=== PATIENT | male | born 1955 | race Caucasian/White ===

== ENCOUNTER 2022-08-29 07:28 | Outpatient (CLI) | payer BC, SELFPAY ==
--- NOTE | ~2022-08-29 | CT_ITS ---
EXAMINATION: CT abdomen pelvis wo/w con DATE: 08/29/2022 08:16 INDICATION: Gross hematuria TECHNIQUE: Computed tomography (CT) of the abdomen and pelvis was performed without intravenous contr ast. CT of the abdomen and pelvis was then performed with a total of 130 mL Omnipaque 350 intravenous contrast using a double-bolus technique for simultaneous opacification of the renal parenchyma and r enal collecting system. The dose-length product (DLP) was 1880.11 mGy-cm. Automated exposure control and iterative reconstruction technique were employed. COMPARISON: None FINDINGS: Minimal dependent atelectasis is present in the lung bases. The heart size is normal. The l iver, spleen, pancreas, gallbladder, and adrenal glands are normal. No stones are present in the kidn eys or ureters. There is a 4 mm cyst of the left kidney. No suspicious renal lesion identified. There is a 3.7 cm stone in the urinary bladder. There is marked enlargement of the prostate. There is mild wall thickening in the right lateral half of the urinary bladder. No pathologically enlarged abdomin al or pelvic lymph nodes are identified. No free intraperitoneal gas or evidence of bowel obstruction . There is a left inguinal hernia containing fat. There is mild lumbar spondylosis. There is a trip ioma in L2 vertebral body extending into the right pedicle. IMPRESSION: 1. 3.7 cm stone in the urinary bladder. 2. Wall thickening in the right lateral half of the urinary bladder which may be inflammatory however direct visualization is recommended. Reviewed, dictated and finalized at location A. IMPRESSION: 1. 3.7 cm stone in the urinary bladder. 2. Wall thickening in the right lateral half of the urinary bladder which may b e inflammatory however direct visualization is recommended.
--- NOTE | ~2022-08-29 | XR_ITS ---
EXAMINATION: XR abdomen/kub 1V INDICATION: Gross hematuria TECHNIQUE: Supine views of the abdomen were obtained on 2 radiographs. COMPARISON: CT from today FINDINGS: There is a 3.7 cm stone in the urinary bladder. No additional urolithiasis is identified. T he bowel gas pattern is normal. There are surgical clips at the expected location of the prostate. Th e visualized lung bases are clear. A moderate volume of colonic stool is present. IMPRESSION: 1. 3.7 cm stone in the urinary bladder. Reviewed, dictated and finalized at location A.
[2022-08-29 07:57] LABS: Estimated Glomerular Filt Rate > 60
== END 2022-08-29 07:29 | disposition home or self-care (01) ==
PROVIDERS: PCP Registered Nurse; Visit Provider Nurse Practitioner Adult Health
DX: R31.0 Gross hematuria (principal); N21.0 Calculus in bladder
CPT/HCPCS: 74018; 74178; Q9967

== ENCOUNTER 2022-09-05 12:21 | Outpatient (CLI) | payer BC, SELFPAY | END 2022-09-05 12:22 | disposition home or self-care (01) | LOC: ANHSURGERY 12:26 | PROVIDERS: PCP Registered Nurse; Visit Provider Urology | DX: N21.0 Calculus in bladder (principal); Z01.818 Encounter for other preprocedural examination | CPT/HCPCS: 87086 ==

== ENCOUNTER 2022-09-09 18:02 | Observation (INO) | payer BC, SELFPAY ==
[2022-09-04 14:02] VITALS: BMI 26.2
--- NOTE | 2022-09-04 14:06 | SUR.PREOP ---
Report to the Outpatient Waiting Room, entrance under the green pavilion located off [facility], at time _0930 on date _09/08/22 . Planned Procedure Time: _1130 . Time changes happen often and if your time is changed the preop area will call you the afternoon before. - You and your visitor will be asked to self-screen and do not enter if you have any COVID symptoms. - A mask is optional within the hospital at this time. Patients may have clear liquids (water, carbonated beverages, clear teas, apple juice) until 3 hours prior to surgery with a maximum of 20 ounces. - No food from midnight until time of surgery - Infants may have breast milk until 4 hours before surgery, formula 6 hours prior to surgery. - Children will be allowed to drink immediately following surgery. If applicable, please bring a bottle or sippy cup to assist with drinking. Juice, water, soda, and popsicles are readily available. For infants on formula, please bring formula the day of surgery. Pacifiers are allowed. Take the following medications with a SIP of water the morning of surgery: ____N/A DO NOT STOP ANY OF YOUR OTHER PRESCRIPTION MEDICATIONS PRIOR TO SURGERY ?EXCEPT THE FOLLOWING Medications to discontinue per physician __VITAMIN SUPPLEMENTS Date to take last dose___PT STOPPED FOR 2 WEEKS Please no make-up, nail albanian, hairspray, perfume, deodorant, or body powder the day of surgery. No jewelry (including any body piercings) or valuables the day of surgery, leave them at home. Please take a shower or bath the night before, or the morning of, surgery with an antibacterial soap. Wear comfortable, loose fitting clothing. Children are encouraged to wear pajamas. - Jewelry must be removed prior to entering the operating room. Rings and piercings that are not removed may be cut off. - The hospital will not accept responsibility for valuables. - Please leave all valuables, including medications, at home the day of surgery. If you are going home after surgery, a licensed certified driver examiner must drive you home. - NO public transportation without another adult if you receive anesthesia. - We recommend that an adult stay with you for 24 hours following discharge. - We also recommend that you do not drive, make important decision, drink alcoholic beverages, or take any drugs that were not prescribed by your health care provider for at least 24 hours after your discharge time. For Pediatric surgeries, we recommend two adults accompany the child home. Follow any additional instructions given to you from your surgeon. If you or anyone in your household have experienced Covid symptoms in the past week, please notify your surgeon or the nurse liaison at the phone number below for possible testing. Telephone instructions given to LAURA WADE and asked if any additional questions and then verbalized understanding. Patient advised to call surgeon office or pre surgery nurse liaison [phone] if any additional questions.
[2022-09-08] VITALS (18 sets, daily range): BP systolic 95–134; BP diastolic 62–80; PULSE 55–82; RESP 10–20; TEMP 36.1–36.7; O2SAT 97–100; BMI 26.6
[2022-09-08] MEDS: LACTATED RINGERS 1,000 ML 30 ML IV CONT ×2 (08:40→13:20)
--- NOTE | 2022-09-08 09:09 | WPDHPUPDATE1 ---
History and Physical Update Update Date/Time: 09/08/22 09:09 History and Physical has been reviewed, including an updated exam of the patient. There are NO changes in the patient's condition. Risks, benefits, and alternatives have been discussed and questions answered. Patient agrees to proceed with procedure. Proceed with cysto with holmium laser of bladder calculus 3 cm
--- NOTE | 2022-09-08 09:16 | WPDANESEPPF ---
Anes - Initial Pre Proc Eval Procedure: Operation Date: 09/08/22 10:30 Proposed Procedures p Cystoscopy, Holmium Laser of Bladder Stones - Jd Hale MD Date/Time: 09/08/22 09:16 Surgeon: Jd Hale MD Pre Op Diagnosis: bladder stones Patient Data Age: 66 Gender: M Height: 1.85 m Weight: 91.5 kg Last Vital Signs Temp 36.3 C L 09/08/22 08:09 Pulse 60 09/08/22 08:09 Resp 18 09/08/22 08:09 BP 134/76 09/08/22 08:09 Pulse Ox 99 09/08/22 08:09 O2 Del Method Room Air 09/08/22 08:09 Allergies Allergy/AdvReac Type Severity Reaction Status Date / Time No Known Allergies Allergy Verified 09/08/22 08:25 Home Medications Medication Instructions Recorded Confirmed Type ascorbate calcium (vitamin C) PO 12/16/20 History cinnamon bark 500 mg capsule 500 mg PO DAILY 12/16/20 09/04/22 History (Cinnamon) coenzyme Q10 10 mg capsule 10 mg PO ONCE 12/16/20 09/04/22 History finasteride 5 mg tablet 5 mg PO DAILY 12/16/20 09/04/22 History multivitamin 1 tablet PO DAILY 12/16/20 09/04/22 History tamsulosin 0.4 mg capsule 0.4 mg PO DAILY 12/16/20 09/04/22 History Patient hx anesthesia problems: none Family hx anesthesia problems: none Results Review: All pre-operative results and documents have been reviewed as part of the pre-operative evaluation. FORMERLY [facility] Past Medical History Medical History (Updated 12/16/20 @ 10:19 by Yolanda Truong RN) Enlarged prostate History of deviated nasal septum Hypertension Surgical History Surgical History (Updated 12/16/20 @ 10:09 by Tiffany Bush CMA) History of extraction of renal calculus Social History Social History Smoking status: Never smoker Living arrangements: with family Spiritual care concerns: No Anes - Eval Final PreProcedure Day of Procedure 09/08/22 09:16 Patient weight: overweight Heart: regular rate and rhythm Lungs: clear to auscultation Airway: Mallampati scale class II Neurological: alert and oriented Last oral intake: >/= 8 hours ASA classification: II Emergent: no Anesthetic plan: proceed Anesthesia type and monitoring: general LMA and standard monitoring Results Review: All pre-operative results and documents have been reviewed as part of the pre-operative evaluation. Informed Consent: The patient's anesthetic plan and its attendant risks and benefits were discussed with the patient/family/POA. Questions were solicited and answers provided to the satisfaction of the patient/family/POA.
[2022-09-08] MEDS: ceFAZolin 2 GM/D5W 50 ML 2 GM/50 ML BAG IVPB (10:58)
[2022-09-08] MEDS: LIDOCAINE HCL 2% GEL UROJET 10 ML PKG MUCOUS MEM (11:08)
--- NOTE | 2022-09-08 13:17 | W.PM.PROC2 ---
Procedure Note - Detailed Date of Procedure 09/08/22 Pre-op Diagnosis bladder stones Post-op Diagnosis Same (Hematuria, BPH) Procedure Performed Cystoscopy with holmium laser of bladder stone, transurethral resection of prostate with removal of the prior UroLift bradley, complex Flores catheter placement Surgeon Jd Hale MD Anesthesia General Description of Procedure Patient is taken to the operative suite correctly identified. Once anesthesia was obtained was placed in dorsal lithotomy position and prepped draped usual sterile fashion. Twenty-two Australian cystoscope was inserted in the bladder. Has a very enlarged prostate which is extremely vascular in nature. Upon entering the bladder it was noted that the bladder was edematous from this 3.7 cm bladder stone. Turns out that bladder stone was the attached to a UroLift staple which was at the 10 o'clock position and migrated to the bladder neck area. We used a fiber micron fiber to laser the stone. As it was being lasered at the bladder neck area his prostate became very bloody in nature and losing. We thus had a switch to a 24 Australian resectoscope sheath and resected the prostate from the bladder neck to the verumontanum. He has a very vascular and large prostate. Hemostasis was difficult to achieve. At some point we just simply decided to terminate the procedure as we could not visualize well enough to laser the stone. At this 0.2% viscous lidocaine was inserted urethra [address] was placed with 30 cc in the balloon connected to CBI connected to traction. He was taken recovery stable condition. He will be admitted for CBI and will need to address the remaining stone at a later point time. Drains Yes Packing No Pathology Yes Complications No immediate complications Condition Stable Disposition PACU
[2022-09-08] MEDS: fentaNYL CITRATE INJ (*CRX) 100 MCG/2 ML VIAL 25 MCG IV PUSH ×6 (13:52→15:40)
[2022-09-08] MEDS: HYOSCYAMINE SULFATE 0.125 MG TABLET PO (14:37)
--- NOTE | 2022-09-08 15:30 | SUR.PHASEI ---
1529: RN tried to call report to floor RN and she's currently on break and will call back.
[2022-09-08] MEDS: DEXTROSE 5%/LACTATED RINGERS 1,000 ML 125 ML IV CONT (16:38)
[2022-09-08] MEDS: HYDROcodone/acetaminophen (*CRX) 5-325 MG TABLET 1 TAB PO ×2 (16:40→22:07)
[2022-09-08] MEDS: ceFAZolin 1 GM/NS 50 ML 1 GM/50 ML BAG IVPB (18:09)
[2022-09-08] MEDS: DOCUSATE SODIUM 100 MG CAPSULE PO (20:29)
[2022-09-08] MEDS: HYOSCYAMINE SULFATE 0.125 MG TABLET SUBLINGUAL (22:08)
[2022-09-09] VITALS (8 sets, daily range): BP systolic 103–131; BP diastolic 54–77; PULSE 55–82; RESP 14–18; TEMP 36.2–37; O2SAT 93–100
[2022-09-09] MEDS: ceFAZolin 1 GM/NS 50 ML 1 GM/50 ML BAG IVPB (03:05)
[2022-09-09] MEDS: DEXTROSE 5%/LACTATED RINGERS 1,000 ML 125 ML IV CONT (03:30)
[2022-09-09] MEDS: HYDROcodone/acetaminophen (*CRX) 5-325 MG TABLET 1 TAB PO ×3 (04:54→17:15)
[2022-09-09 06:24] LABS: Hematocrit 33.7 % (42.0-52.0); Hemoglobin 10.9 g/dL (14.0-18.0)
[2022-09-09 06:35] LABS: Anion Gap 1 mmol/L (8-16); Blood Urea Nitrogen 11 mg/dL (9-20); Calcium 7.8 mg/dL (8.4-10.2); Carbon Dioxide 32 mmol/L (22-30); Chloride 101 mmol/L (98-107); Estimated CRCL calculation 119 ml/min; Estimated Glomerular Filt Rate > 60; Glucose 139 mg/dL (65-110); Potassium 4.3 mmol/L (3.4-5.0); Sodium 134 mmol/L (137-145)
[2022-09-09] MEDS: CEPHALEXIN 500 MG CAPSULE PO ×4 (09:22→20:16)
[2022-09-09] MEDS: DOCUSATE SODIUM 100 MG CAPSULE PO ×2 (09:22→20:16)
--- NOTE | 2022-09-09 10:44 | WPDUROPN2 ---
Progress Note: A&P Assessment and Plan (1) BPH (benign prostatic hyperplasia): Code(s): N40.0 - Benign prostatic hyperplasia without lower urinary tract symptoms Status: Acute Assessment and Plan: postoperative day 1. From transurethral resection of prostate which was incidental to the laser of bladder calculus. Will discharge home with Flores catheter if urine remains clear and plan on laser of remaining bladder calculus at a later point time (2) Bladder calculus: Code(s): N21.0 - Calculus in bladder Status: Acute Assessment and Plan: unable to laser all of the calculus due to hematuria from the prostate. Will reschedule in a couple weeks (3) Hematuria: Code(s): R31.9 - Hematuria, unspecified Status: Acute Assessment and Plan: wean CBI to off. If urine remains clear will discharge home with Flores catheter Subjective Subjective Date/Time Seen: 09/09/22 10:44 Principal diagnosis: Bladder calculus with BPH Interval history: doing well postoperative day 1. Holmium laser bladder calculus with transurethral section of prostate. Urine is clear But with CBI running. Review of Systems Review of Systems: All systems reviewed & are unremarkable except as noted in HPI and below Exam Const: General: cooperative and comfortable Eyes: General: appearance normal, both eyes and all related structures Resp: Effort & Inspection: normal respiratory effort Cardio: Rate: regular rate Rhythm: regular rhythm Urinary Catheter: Urinary Catheter: patent and draining and urine clear Objective Data Vital Signs Vital Signs: Vital Signs - 24 hr 09/08/22 13:20 09/08/22 13:35 09/08/22 13:50 Temperature 36.1 C L Pulse Rate 68 66 65 Respiratory Rate 14 20 15 Blood Pressure 103/67 124/74 98/64 L Pulse Oximetry 99 100 100 Oxygen Delivery Simple Face Mask Simple Face Mask Simple Face Mask Oxygen Flow Rate 6 10 10 09/08/22 14:05 09/08/22 14:20 09/08/22 14:35 Temperature Pulse Rate 64 59 L 67 Respiratory Rate 12 13 16 Blood Pressure 103/73 97/79 L 112/62 Pulse Oximetry 100 100 98 Oxygen Delivery Simple Face Mask Room Air Room Air Oxygen Flow Rate 8 09/08/22 14:50 09/08/22 15:05 09/08/22 15:20 Temperature Pulse Rate 55 L 55 L 63 Respiratory Rate 10 L 12 17 Blood Pressure 100/63 109/72 99/63 L Pulse Oximetry 98 97 100 Oxygen Delivery Room Air Room Air Room Air Oxygen Flow Rate 09/08/22 15:35 09/08/22 15:50 09/08/22 15:55 Temperature 36.2 C L Pulse Rate 62 62 82 Respiratory Rate 15 15 18 Blood Pressure 114/80 95/71 L 120/67 Pulse Oximetry 100 98 97 Oxygen Delivery Room Air Room Air Oxygen Flow Rate 09/08/22 18:30 09/08/22 16:10 09/08/22 16:40 Temperature 36.4 C 36.7 C Pulse Rate 60 58 L Respiratory Rate 16 17 Blood Pressure 106/65 115/75 Pulse Oximetry 100 98 Oxygen Delivery Room Air Oxygen Flow Rate 09/08/22 17:40 09/08/22 20:00 09/08/22 21:40 Temperature 36.3 C L 36.5 C Pulse Rate 66 66 62 Respiratory Rate 18 18 16 Blood Pressure 113/73 101/66 Pulse Oximetry 99 99 97 Oxygen Delivery Room Air Oxygen Flow Rate 09/09/22 01:40 09/09/22 05:40 09/09/22 09:40 Temperature 36.6 C 36.5 C 36.2 C L Pulse Rate 55 L 63 62 Respiratory Rate 16 16 16 Blood Pressure 103/54 L 106/62 130/65 Pulse Oximetry 96 98 100 Oxygen Delivery Oxygen Flow Rate Intake/Output Intake/Output: Intake & Output 09/06/22 09/07/22 09/08/22 09/09/22 23:59 23:59 23:59 23:59 Intake Total 5015 1280 Output Total 62994 8670 [id number] -[id number] Meds/Results Medications: Active Medications Generic Name Dose Route Start Last Admin Trade Name Freq PRN Reason Stop Dose Admin Hydrocodone Bitart/Acetaminophen 1 tab 09/08/22 15:55 09/09/22 09:20 Hydrocodone/Acetaminophen (*Crx) 5-325 Mg Tablet PO 1 tab Q4H PRN Administration Pain Rated 1-6 Cephalexin HCl 500 mg 09/09/22 09:00 09/09
--- NOTE | 2022-09-09 10:52 | PM.DS ---
DS: Admitting Diagnosis Discharge Date 09/09/2022 Admitting Diagnosis hematuria post transurethral section of prostate and laser bladder calculus DS: Discharge Diagnosis Discharge Diagnosis (1) BPH (benign prostatic hyperplasia): Code(s): N40.0 - Benign prostatic hyperplasia without lower urinary tract symptoms Status: Acute Assessment and Plan: discharged home with Flores catheter. Call office next week for scheduling outpatient procedure (2) Hematuria: Code(s): R31.9 - Hematuria, unspecified Status: Acute Assessment and Plan: resolved (3) Bladder calculus: Code(s): N21.0 - Calculus in bladder Status: Acute Assessment and Plan: plan on outpatient holmium laser of remaining bladder calculus DS: Summary Hospital Course Reason for hospitalization: hematuria post transurethral resection of prostate and laser bladder calculus Hospital Course: Jonas was to undergo a holmium laser of bladder calculus. It was noted that the stone was attached to a staple from his prior urolith. His prostate was bleeding and required resection at the same setting. He was admitted for CBI. His urine cleared over the next 24 hours and he is being discharged home with Flores catheter. Time Spent with Patient Time attestation: Total time spent providing and/or coordinating discharge services: DS: Data Data Completed and Pending Pending studies at discharge: Pending at discharge 09/08/22 11:05 Surgical [PTH] Routine Surgical [PTH] Routine Surgical [PTH] Routine Labs on day of discharge: Labs from last 24 hours 09/09/22 05:43 Hgb 10.9 L Hct 33.7 L Sodium 134 L Potassium 4.3 Chloride 101 Carbon Dioxide 32 H Anion Gap 1 L BUN 11 Creatinine 0.60 L Estim Creat Clear Calc 119 Estimated GFR > 60 Glucose 139 H Calcium 7.8 L Discharge Plan Discharge Patient Disposition: Home, Self-Care Discharge Instructions: discharged home with Flores catheter if urine remains clear. Call for further instructions later in the week Stand Alone Forms: General Discharge Instructions Discharge Medications: Continued tamsulosin 0.4 mg capsule 0.4 mg PO DAILY amlodipine 5 mg tablet 5 mg PO HS losartan 25 mg tablet 25 mg PO HS Discontinued coenzyme Q10 10 mg capsule 10 mg PO ONCE multivitamin Tablet 1 tablet PO DAILY No Action finasteride 5 mg tablet 5 mg PO DAILY ascorbate calcium (vitamin C) 1 tab-cap PO DAILY
--- NOTE | 2022-09-09 11:10 | WPDANESPN ---
Anes - Prog Note Post-Op Date/Time: 09/09/22 11:10 Cardiovascular status: normal Respiratory status: normal Airway patency: baseline Mental status: baseline Post-Op hydration status: normal Vital Signs: Last Vital Signs Temp 97.2 F L 09/09/22 09:40 Pulse 62 09/09/22 09:40 Resp 16 09/09/22 09:40 BP 130/65 09/09/22 09:40 Pulse Ox 100 09/09/22 09:40 O2 Del Method Room Air 09/08/22 20:00 O2 Flow Rate 8 09/08/22 14:05 Pain Score (VAS): 0 I/O: Intake & Output 09/08/22 09/09/22 09/09/22 23:59 07:59 15:59 Intake Total 4030 1600 860 Output Total 9400 6300 Balance -5370 -4700 860 Laboratory Tests 09/09/22 05:43 09/09/22 05:43 09/09/22 05:43 Hgb 10.9 L Hct 33.7 L Sodium 134 L Potassium 4.3 Chloride 101 Carbon Dioxide 32 H Anion Gap 1 L BUN 11 Creatinine 0.60 L Estim Creat Clear Calc 119 Estimated GFR > 60 Glucose 139 H Calcium 7.8 L Post-procedural complaints: none Patient Feedback: Patient satisfied with anesthetic care.
[2022-09-09] MEDS: HYOSCYAMINE SULFATE 0.125 MG TABLET SUBLINGUAL (19:30)
[2022-09-10 05:54] VITALS: BP 126/55; PULSE 70; RESP 14; TEMP 37.3; O2SAT 93
[2022-09-10 08:15] VITALS: PULSE 70; RESP 14; O2SAT 93
[2022-09-10] MEDS: CEPHALEXIN 500 MG CAPSULE PO ×2 (08:15→12:24)
[2022-09-10] MEDS: DOCUSATE SODIUM 100 MG CAPSULE PO (08:15)
--- NOTE | 2022-09-10 12:53 | PM.DS ---
DS: Admitting Diagnosis Discharge Date 09/10/22 Admitting Diagnosis bph, bladder calculus DS: Summary Hospital Course Hospital Course: Admitted for holmium laser of bladder calculus and requiried turp due to bleeding. Portion of bladder stone still present. Will require repeat procedure Time Spent with Patient Time attestation: Total time spent providing and/or coordinating discharge services: DS: Data Data Completed and Pending Pending studies at discharge: Pending at discharge 09/08/22 11:05 Surgical [PTH] Routine Surgical [PTH] Routine Surgical [PTH] Routine Discharge Plan Discharge Attending physician on discharge: Jd Hale Discharging Clinician: Jd Hale Patient Disposition: Home, Self-Care Activity: may shower Diet: as tolerated Discharge Instructions: discharged home with Flores catheter if urine remains clear. Call for further instructions later in the week Stand Alone Forms: General Discharge Instructions Follow-up/Referrals: Jd Hale MD [Physician] - (Office to schedule outpatient procedure) Discharge Medications: Continued tamsulosin 0.4 mg capsule 0.4 mg PO DAILY amlodipine 5 mg tablet 5 mg PO HS losartan 25 mg tablet 25 mg PO HS Discontinued coenzyme Q10 10 mg capsule 10 mg PO ONCE multivitamin Tablet 1 tablet PO DAILY No Action finasteride 5 mg tablet 5 mg PO DAILY ascorbate calcium (vitamin C) 1 tab-cap PO DAILY Date of admission: 09/09/22 18:02 Primary Care Provider: MonaShanda Admitting Provider: Jd Hale Attending physician on admission: Jd Hale Condition: Stable
== END 2022-09-10 14:10 | disposition home or self-care (01) ==
LOC: ANHSURGERY 18:07 → ANH3MED 18:07
PROVIDERS: Admitting Provider Urology; PCP Registered Nurse; Visit Provider Urology
PROC: 0TCB8ZZ Extirpation of Matter from Bladder, Via Natural or Artificial Opening Endoscopic (ICD-10-PCS; CPT 52352; principal; 2022-09-08 10:30)
DX: N40.0 Benign prostatic hyperplasia without lower urinary tract symptoms (principal); N21.0 Calculus in bladder; R31.9 Hematuria, unspecified; I10 Essential (primary) hypertension; E66.3 Overweight; Z68.26 Body mass index [BMI] 26.0-26.9, adult; Z79.899 Other long term (current) drug therapy
CPT/HCPCS: 52318; 52601; 36415; 80048; 82365; 85014; 85018; 88300; 88305; 88342; A9270; G0378; J0690; J1100; J2250; J2405; J2704; J3010; J7120; J7121

== ENCOUNTER 2022-09-19 10:24 | Emergency (ER) | payer BC, SELFPAY ==
[2022-09-19 10:51] VITALS: BP 124/75; PULSE 76; RESP 18; TEMP 36.9; O2SAT 98
[2022-09-19 11:12] LABS: Basophils Percent Auto 0.5 % (0.2-1.2); Eosinophils Absolute Auto 0.3 K/mm3 (0-0.3); Eosinophils Percent Auto 4.2 % (0-4.4); Hematocrit 36.2 % (42.0-52.0); Hemoglobin 11.9 g/dL (14.0-18.0); Immature Granulocyte Absolute 0.03 K/mm3 (0.00-0.031); Immature Granulocyte Percent A 0.4 % (0-0.5); Lymphocytes Absolute Auto 1.22 K/mm3 (0.9-3.2); Mean Corpuscular HGB Conc 32.9 g/dl (32-36); Mean Corpuscular Hemoglobin 29.2 pg (26-34); Mean Corpuscular Volume 88.7 fl (80-100); Mean Platelet Volume 8.4 fl (7.4-10.4); Monocytes Absolute Auto 0.6 K/mm3 (0.1-0.6); Monocytes Percent Auto 7.5 % (2.6-8.5); Neutrophils Absolute Auto 5.9 K/mm3 (1.3-6.7); Neutrophils Percent Auto 72.4 % (45.5-73.1); Platelet Count Result 395 k/mm3 (150-375); Red Blood Count 4.08 M/mm3 (4.6-6.20); Red Cell Distribution Width 12.9 % (11.5-14.5); White Blood Count 8.2 K/mm3 (4.5-10.0)
[2022-09-19 11:40] LABS: Alanine Aminotransferase 19 U/L (6-50); Albumin Level 4.1 g/dL (3.5-5.1); Alkaline Phosphatase 86 U/L (38-126); Anion Gap 5 mmol/L (8-16); Aspartate Amino Transferase 23 U/L (17-59); Bilirubin,Total 0.4 mg/dL (0.2-1.3); Blood Urea Nitrogen 12 mg/dL (9-20); Calcium 9.2 mg/dL (8.4-10.2); Carbon Dioxide 33 mmol/L (22-30); Chloride 99 mmol/L (98-107); Estimated CRCL calculation 104 ml/min; Estimated Glomerular Filt Rate > 60; Glucose 113 mg/dL (65-110); Potassium 4.5 mmol/L (3.4-5.0); Sodium 137 mmol/L (137-145)
[2022-09-19 11:50] LABS: Add Urine Microscopic? YES; Appearance Urine Clear (Clear); Bilirubin Urine 1+ (Negative); Blood Urine 3+ (Negative); Color Urine Yellow (Yellow); Glucose Urine UA Negative (Negative); Ketones Urine Negative (Negative); Leukocyte Esterase Ur 1+ LEU/UL (Negative); Nitrate Urine Negative (Negative); Protein Urine 3+ mg/dL (Negative); Specific Grav Ur >= 1.030 (1.001-1.035); Urobilinogen Urine 0.2 mg/dL (<2.0)
[2022-09-19 11:52] LABS: Bacteria Urine 2+ /hpf; Calcium Oxalate Crystals Urine Present /hpf; RBC Urine >75 /hpf (0-2); WBC Urine >75 /hpf
--- NOTE | 2022-09-19 12:33 | ED.MALEGU ---
HPI - Male Genitourinary General Chief complaint: Urogenital-Male Stated complaint: Flores Catheter not draining, sent by urologist Time Seen by Provider: 09/19/22 10:58 Source: patient and old records reviewed Mode of arrival: ambulatory Limitations: no limitations History of Present Illness HPI Narrative: Patient is a 66-year-old male who presents to ED with report of Flores catheter problems. Patient reports he first had the catheter placed on 09/08 at which time he underwent cystoscopy for laser of a large bladder stone, TURP. He was hospitalized for a couple of days for CBI. He is scheduled to follow-up with urology again on Sunday for further management of the bladder stone. Patient states over the last few days he has had issues with the catheter draining properly. He does not feel that it is draining fully or only drains when he is laying flat. He feels the urge to urinate with lower abdominal pressure and at times has urinated around the Flores catheter tubing. He has tried contacting the urology office several times. He states he was prescribed Viagra, but did not pick this up. Denies any fever, nausea, vomiting. Related Data Home Medications Medication Instructions Recorded Confirmed tamsulosin 0.4 mg capsule 0.4 mg PO DAILY 12/16/20 09/13/22 amlodipine 5 mg tablet 5 mg PO HS 09/08/22 09/13/22 losartan 25 mg tablet 25 mg PO HS 09/08/22 09/13/22 Allergies Allergy/AdvReac Type Severity Reaction Status Date / Time No Known Allergies Allergy Verified 09/13/22 13:40 Review of Systems Review of Systems: CONSTITUTIONAL: Denies fever, chills, or sweats. CARDIOVASCULAR: Denies chest pain. RESPIRATORY: Denies dyspnea. GASTROINTESTINAL: See HPI. GENITOURINARY: See HPI. SKIN: Denies rash or itching. MUSCULOSKELETAL: Denies back pain, joint pain, or myalgia. All systems reviewed & are unremarkable except as noted in HPI and below PMFSH Past Medical History Medical History Bladder spasms Enlarged prostate History of deviated nasal septum Hypertension Surgical History Surgical History History of extraction of renal calculus Social History Social History Smoking status: Never smoker Lack of Transportation: No Lack of Food: Never True Current Housing: Decline to Answer Concerned About Future Housing: Decline to Answer Difficulty Paying Gas/Electric Bills: Decline to Answer Difficulty Paying for Meds: Decline to Answer Currently Unemployed: Decline to Answer Education: Decline to Answer Difficulty w/ Childcare or Family Care: Decline to Answer Living arrangements: with family Spiritual care concerns: No Exam Narrative: GENERAL: Well appearing, well-nourished, non-toxic, in no acute distress. HEAD: Normocephalic, atraumatic. NECK: Supple. No adenopathy, no masses. RESPIRATORY: Airway patent, respirations nonlabored. Clear to auscultation bilaterally, no rales, rhonchi, wheezing. CARDIOVASCULAR: Regular rate and rhythm without murmurs, rubs, or gallops. Peripheral pulses 2+ and equal bilaterally. ABDOMINAL: Soft, mild tenderness throughout lower abdomen, nondistended, no hepatosplenomegaly. Normoactive BS. MUSCULOSKELETAL: Moves all extremities. Strength/ROM intact without gross deformities. SKIN: Warm, dry, normal color. No rashes. NEURO: A&O X3. Speech clear. Cranial nerves II-XII grossly intact. Steady gait. No ataxic movements. PSYCHIATRIC: Appropriate mood and affect. Normal interaction. Course Vital Signs Vital signs: Vital Signs Temperature 98.5 F 09/19/22 10:51 Pulse Rate 76 09/19/22 10:51 Respiratory Rate 18 09/19/22 10:51 Blood Pressure 124/75 09/19/22 10:51 Pulse Oximetry 98 09/19/22 10:51 Oxygen Delivery Autopap 09/19/22 10:51 Temperature 98.5 F
[2022-09-19] MEDS: traMADol HCL (*CRX) 50 MG TABLET PO (13:29)
== END 2022-09-19 13:40 | disposition home or self-care (01) ==
PROVIDERS: Emergency Provider Physician Assistant; PCP Registered Nurse
DX: T83.098A Other mechanical complication of other urinary catheter, initial encounter (principal); T83.511A Infection and inflammatory reaction due to indwelling urethral catheter, initial encounter; N32.89 Other specified disorders of bladder; N21.0 Calculus in bladder; N40.0 Benign prostatic hyperplasia without lower urinary tract symptoms; I10 Essential (primary) hypertension; Z87.442 Personal history of urinary calculi; Y84.6 Urinary catheterization as the cause of abnormal reaction of the patient, or of later complication, without mention of misadventure at the time of the procedure
CPT/HCPCS: 36415; 51702; 80053; 81001; 85025; 87086; 99283; A9270

== ENCOUNTER 2022-09-22 03:26 | Day surgery (SDC) | payer BC, SELFPAY ==
[2022-09-13 13:54] VITALS: BMI 26.6
--- NOTE | 2022-09-13 13:55 | SUR.PREOP ---
Report to the Outpatient Waiting Room, entrance under the green pavilion located off [facility], at time _0600 on date _09/22/22 . Planned Procedure Time: _729 . Time changes happen often and if your time is changed the preop area will call you the afternoon before. - You and your visitor will be asked to self-screen and do not enter if you have any COVID symptoms. - A mask is optional within the hospital at this time. Patients may have clear liquids (water, carbonated beverages, clear teas, apple juice) until 3 hours prior to surgery with a maximum of 20 ounces. - No food from midnight until time of surgery - Infants may have breast milk until 4 hours before surgery, formula 6 hours prior to surgery. - Children will be allowed to drink immediately following surgery. If applicable, please bring a bottle or sippy cup to assist with drinking. Juice, water, soda, and popsicles are readily available. For infants on formula, please bring formula the day of surgery. Pacifiers are allowed. Take the following medications with a SIP of water the morning of surgery: __n/a DO NOT STOP ANY OF YOUR OTHER PRESCRIPTION MEDICATIONS PRIOR TO SURGERY ?EXCEPT THE FOLLOWING Medications to discontinue per physician n/a Date to take last dose___n/a Please no make-up, nail mexican, hairspray, perfume, deodorant, or body powder the day of surgery. No jewelry (including any body piercings) or valuables the day of surgery, leave them at home. Please take a shower or bath the night before, or the morning of, surgery with an antibacterial soap. Wear comfortable, loose fitting clothing. Children are encouraged to wear pajamas. - Jewelry must be removed prior to entering the operating room. Rings and piercings that are not removed may be cut off. - The hospital will not accept responsibility for valuables. - Please leave all valuables, including medications, at home the day of surgery. If you are going home after surgery, a licensed otr flatbed driver must drive you home. - NO public transportation without another adult if you receive anesthesia. - We recommend that an adult stay with you for 24 hours following discharge. - We also recommend that you do not drive, make important decision, drink alcoholic beverages, or take any drugs that were not prescribed by your health care provider for at least 24 hours after your discharge time. For Pediatric surgeries, we recommend two adults accompany the child home. Follow any additional instructions given to you from your surgeon. If you or anyone in your household have experienced Covid symptoms in the past week, please notify your surgeon or the nurse liaison at the phone number below for possible testing. Telephone instructions given to todd mosqueda and asked if any additional questions and then verbalized understanding. Patient advised to call surgeon office or pre surgery nurse liaison [phone] if any additional questions.
[2022-09-22] VITALS (11 sets, daily range): BP systolic 104–132; BP diastolic 56–81; PULSE 53–66; RESP 11–20; TEMP 36–36.9; O2SAT 95–100; BMI 25.9
--- NOTE | 2022-09-22 09:18 | P.PNAN_ITS ---
Anes - Initial Pre Proc Eval Procedure: Operation Date: 09/22/22 12:00 Proposed Procedures p Cystoscopy, Holmium Laser of Bladder Stone, Possible Stent Removal/Replacement - Jd Hale MD Date/Time: 09/22/22 09:18 Surgeon: Jd Hale MD Pre Op Diagnosis: bladder stone Patient Data Age: 66 Gender: M Height: 1.85 m Weight: 91.8 kg Allergies Allergy/AdvReac Type Severity Reaction Status Date / Time No Known Allergies Allergy Verified 09/22/22 09:59 Home Medications Medication Instructions Recorded Confirmed Type tamsulosin 0.4 mg capsule 0.4 mg PO DAILY 12/16/20 09/13/22 History amlodipine 5 mg tablet 5 mg PO HS 09/08/22 09/13/22 History losartan 25 mg tablet 25 mg PO HS 09/08/22 09/13/22 History levofloxacin 750 mg tablet 750 mg PO DAILY 7 days #7 tabs 09/19/22 Rx levofloxacin 750 mg tablet 750 mg PO DAILY 7 days #7 tabs 09/19/22 Rx methenam 118 mg-m.blue 10 1 tablet PO QID 2 days #8 caps 09/19/22 Rx mg-s.phos 40.8 mg-p.salic 36 mg-hyos capsule (Uribel) methenam 118 mg-m.blue 10 1 tablet PO QID 2 days #8 caps 09/19/22 Rx mg-s.phos 40.8 mg-p.salic 36 mg-hyos capsule (Uribel) tramadol 50 mg tablet 50 mg PO Q6H PRN pain #10 tabs 09/19/22 Rx tramadol 50 mg tablet 50 mg PO Q6H PRN pain #10 tabs 09/19/22 Rx Patient hx anesthesia problems: none Family hx anesthesia problems: none Results Review: All pre-operative results and documents have been reviewed as part of the pre- operative evaluation. [facility] Past Medical History Medical History Bladder spasms Enlarged prostate History of deviated nasal septum Hypertension Surgical History Surgical History History of extraction of renal calculus Social History Social History Smoking status: Never smoker Lack of Transportation: No Lack of Food: Never True Current Housing: Decline to Answer Concerned About Future Housing: Decline to Answer Difficulty Paying Gas/Electric Bills: Decline to Answer Difficulty Paying for Meds: Decline to Answer Currently Unemployed: Decline to Answer Education: Decline to Answer Difficulty w/ Childcare or Family Care: Decline to Answer Living arrangements: with family Spiritual care concerns: No Anes - Eval Final PreProcedure Day of Procedure 09/22/22 09:18 Patient weight: normal Heart: regular rate and rhythm Lungs: clear to auscultation Airway: Mallampati scale class II Neurological: alert and oriented Last oral intake: >/= 8 hours ASA classification: II Emergent: no Anesthetic plan: proceed Anesthesia type and monitoring: general LMA and standard monitoring Results Review: All pre-operative results and documents have been reviewed as part of the pre- operative evaluation. Informed Consent: The patient's anesthetic plan and its attendant risks and benefits were discussed with the patient/family/POA. Questions were solicited and answers provided to the satisfaction of the patient/family/POA.
[2022-09-22] MEDS: LACTATED RINGERS 1,000 ML 30 ML IV CONT (10:20)
--- NOTE | 2022-09-22 10:43 | ECG_ITS ---
Measurements Intervals [place] Rate: 58 P: 43 [place]: 180 QRS: 12 QRSD: 87 T: 24 QT: 397 QTc: 391 Interpretive Statements SINUS BRADYCARDIA BORDERLINE ECG COMPARED TO ECG 06/25/2018 14:57:18 SINUS BRADYCARDIA NOW PRESENT Electronically Signed On 09-22-2022 10:57:57 CDT by Dayne Leo D.O.
--- NOTE | 2022-09-22 10:59 | WPDHPUPDATE1 ---
History and Physical Update Update Date/Time: 09/22/22 10:59 History and Physical has been reviewed, including an updated exam of the patient. There are NO changes in the patient's condition. Risks, benefits, and alternatives have been discussed and questions answered. Patient agrees to proceed with procedure. Proceed with cysto, holmium laser bladder stone, possible re-resection of prostate
--- NOTE | 2022-09-22 11:02 | PM.IMHP ---
H&P: HPI History of Present Illness Date/Time: 09/22/22 11:02 Chief Complaint: residual bladder calculus Narrative: 66 yr old male s/p holmium laser of large bladder stone and turp. He had quite a bit of bleeding and procedure was terminated. He is here for laser of residual bladder calculus and re resection of prostate if needed. He had 52 gms of benign tissue resected last visit. Review of Systems Review of Systems: All systems reviewed & are unremarkable except as noted in HPI and below PMFSH Past Medical History Medical History Bladder spasms Enlarged prostate History of deviated nasal septum Hypertension Surgical History Surgical History History of extraction of renal calculus Social History Social History Smoking status: Never smoker Lack of Transportation: No Lack of Food: Never True Current Housing: Decline to Answer Concerned About Future Housing: Decline to Answer Difficulty Paying Gas/Electric Bills: Decline to Answer Difficulty Paying for Meds: Decline to Answer Currently Unemployed: Decline to Answer Education: Decline to Answer Difficulty w/ Childcare or Family Care: Decline to Answer Living arrangements: with family Spiritual care concerns: No Meds Home Medications and Allergies Home Medications Medication Instructions Recorded Confirmed Type tamsulosin 0.4 mg capsule 0.4 mg PO DAILY 12/16/20 09/13/22 History amlodipine 5 mg tablet 5 mg PO HS 09/08/22 09/13/22 History losartan 25 mg tablet 25 mg PO HS 09/08/22 09/13/22 History levofloxacin 750 mg tablet 750 mg PO DAILY 7 days #7 tabs 09/19/22 Rx levofloxacin 750 mg tablet 750 mg PO DAILY 7 days #7 tabs 09/19/22 Rx methenam 118 mg-m.blue 10 1 tablet PO QID 2 days #8 caps 09/19/22 Rx mg-s.phos 40.8 mg-p.salic 36 mg-hyos capsule (Uribel) methenam 118 mg-m.blue 10 1 tablet PO QID 2 days #8 caps 09/19/22 Rx mg-s.phos 40.8 mg-p.salic 36 mg-hyos capsule (Uribel) tramadol 50 mg tablet 50 mg PO Q6H PRN pain #10 tabs 09/19/22 Rx tramadol 50 mg tablet 50 mg PO Q6H PRN pain #10 tabs 09/19/22 Rx Allergies Allergy/AdvReac Type Severity Reaction Status Date / Time No Known Allergies Allergy Verified 09/22/22 09:59 Vital Signs Vital Signs - 24 hr 09/22/22 09:55 Temperature 36.9 C Pulse Rate 63 Respiratory Rate 16 Blood Pressure 122/73 Pulse Oximetry 99 Oxygen Delivery Room Air Exam Const: General: cooperative and comfortable HENMT: Head: normal to inspection Resp: Effort & Inspection: normal respiratory effort Cardio: Rate: regular rate Rhythm: regular rhythm GI: Inspection: normal to inspection Assessment and Plan Assessment and plan (1) Bladder calculus: Code(s): N21.0 - Calculus in bladder Status: Acute Assessment and Plan: Proceed with cysto, holmium laser of residual bladder calculus, possibe re-resection of prostate. (2) BPH (benign prostatic hyperplasia): Code(s): N40.0 - Benign prostatic hyperplasia without lower urinary tract symptoms Status: Acute
[2022-09-22] MEDS: ceFAZolin 2 GM/D5W 50 ML 2 GM/50 ML BAG IVPB (11:52)
--- NOTE | 2022-09-22 12:56 | W.PM.PROC2 ---
Procedure Note - Detailed Date of Procedure 09/22/22 Pre-op Diagnosis bladder stone Post-op Diagnosis Same Procedure Performed Cysto with holmium laser bladder stone and re-resection of residual prostatic tissue Surgeon Jd Hale MD Anesthesia General Indications Patient is a 66-year-old male who had a proximally 3 cm bladder stone attached to a uro lift staple. This was attempted to be lasered approximately a week ago. He developed significant bleeding from the extremely enlarged vascular prostate. He required resection. I resected 52 g of benign tissue but due to some bleeding I was unable to laser the entire stone. He is now here for laser of residual stone with possible re-resection of any residual tissue of 3-0 significant bleeding. Description of Procedure Patient is taken to the operative suite correctly identified. Once anesthesia was obtained was placed in dorsal lithotomy position and prepped and draped usual sterile fashion. Twenty-two Barb[place] scope was inserted in the bladder. He is healing nicely.. Simply placing the scope initiated some mild bleeding from the prostate. We were able to however laser the remaining residual stone and retrieve the fragments. Given his residual bleeding we decided to resect some tissue further to achieve better hemostasis. Again the ureteral orifices were visualized at all times. Residual tissue from the bladder neck to the prostate were resected. He has a very long prostate as well as height of the prostate. We used the Bugbee to fulgurate. There appeared to be good hemostasis at termination. 2% viscous lidocaine was inserted urethra. Twenty-two Barbadian [address] was placed with 20 cc in the balloon. He is taken recovery stable condition with CBI. Will admit the patient for CBI. Please send a copy of this dictation to my office Estimated Blood Loss 50 Drains Yes Packing No Pathology Yes Complications No immediate complications Condition Stable Disposition PACU
[2022-09-22] MEDS: fentaNYL CITRATE INJ (*CRX) 100 MCG/2 ML VIAL 25 MCG IV PUSH ×4 (13:27→13:58)
[2022-09-22] MEDS: oxyBUTYnin CHLORIDE 5 MG TABLET PO (13:58)
--- NOTE | 2022-09-22 14:18 | PC.NURSE ---
This patient, Jonas Mcqueen, was admitted to Medical Room 247-. Patient/family oriented to hospital policies and general routines including ID bracelet, bed and alarms, visiting hours, pain management, procedures, bathroom and other care routines, personal items, smoking policy, room service/diet, and visiting hours. Information on how to activate the Rapid Response Team has been discussed. Patient/Family are encouraged to report perceived risks to care and to ask questions if they do not understand what they are told or what they should do.
[2022-09-22] MEDS: DEXTROSE 5%/LACTATED RINGERS 1,000 ML 125 ML IV CONT (15:19)
[2022-09-22] MEDS: ceFAZolin 1 GM/NS 50 ML 1 GM/50 ML BAG IVPB (20:15)
[2022-09-22] MEDS: LOSARTAN POTASSIUM 25 MG TABLET PO (20:15)
[2022-09-22] MEDS: DOCUSATE SODIUM 100 MG CAPSULE PO (20:15)
[2022-09-23 03:57] VITALS: BP 125/61; PULSE 63; RESP 18; TEMP 36.4; O2SAT 98
[2022-09-23] MEDS: ceFAZolin 1 GM/NS 50 ML 1 GM/50 ML BAG IVPB (04:54)
[2022-09-23 05:33] LABS: Hematocrit 30.8 % (42.0-52.0); Hemoglobin 10.1 g/dL (14.0-18.0)
[2022-09-23 05:45] LABS: Anion Gap 3 mmol/L (8-16); Blood Urea Nitrogen 12 mg/dL (9-20); Calcium 8.4 mg/dL (8.4-10.2); Carbon Dioxide 29 mmol/L (22-30); Chloride 102 mmol/L (98-107); Estimated CRCL calculation 104 ml/min; Estimated Glomerular Filt Rate > 60; Glucose 175 mg/dL (65-110); Sodium 134 mmol/L (137-145)
[2022-09-23] MEDS: HYOSCYAMINE SULFATE 0.125 MG TABLET SUBLINGUAL (06:36)
[2022-09-23] MEDS: DOCUSATE SODIUM 100 MG CAPSULE PO (08:07)
[2022-09-23 08:10] VITALS: BP 132/103; PULSE 73; RESP 16; TEMP 36.9; O2SAT 100
--- NOTE | 2022-09-23 09:30 | PM.DS ---
DS: Admitting Diagnosis Discharge Date sunday09/23/2022 Admitting Diagnosis bph DS: Discharge Diagnosis Discharge Diagnosis Plan DC POD1 after TURP and cystolithalopaxy with clear yellow urine; le to be removed in a few days DS: Summary Hospital Course Hospital Course: routine DC after TURP Time Spent with Patient Time attestation: Total time spent providing and/or coordinating discharge services: DS: Data Data Completed and Pending Pending studies at discharge: Pending at discharge 09/22/22 13:03 Surgical [PTH] Routine Surgical [PTH] Routine Labs on day of discharge: Labs from last 24 hours 09/23/22 05:22 Hgb 10.1 L Hct 30.8 L Sodium 134 L Potassium 4.0 Chloride 102 Carbon Dioxide 29 Anion Gap 3 L BUN 12 Creatinine 0.70 Estim Creat Clear Calc 104 Estimated GFR > 60 Glucose 175 H Calcium 8.4 Discharge Plan Discharge Patient Disposition: Home, Self-Care Discharge Instructions: Call office Sunday to arrange le removal for sun/sun Stand Alone Forms: General Discharge Instructions Discharge Medications: Continued tamsulosin 0.4 mg capsule 0.4 mg PO DAILY amlodipine 5 mg tablet 5 mg PO HS losartan 25 mg tablet 25 mg PO HS Uribel 118-10-40.8-36 mg capsule 1 tablet PO QID 2 Days Qty: 8 0RF Rx Instructions: administer with plenty of fluids levofloxacin 750 mg tablet 750 mg PO DAILY 7 Days Qty: 7 0RF tramadol 50 mg tablet 50 mg PO Q6H PRN (Reason: pain) Qty: 10 0RF tramadol 50 mg tablet 50 mg PO Q6H PRN (Reason: pain) Qty: 10 0RF Uribel 118-10-40.8-36 mg capsule 1 tablet PO QID 2 Days Qty: 8 0RF Rx Instructions: administer with plenty of fluids Discontinued levofloxacin 750 mg tablet 750 mg PO DAILY 7 Days Qty: 7 0RF
== END 2022-09-23 10:35 | disposition home or self-care (01) ==
LOC: ANHSURGERY 09:45 → ANH2MED 14:15
PROVIDERS: PCP Registered Nurse; Visit Provider Urology
PROC: (CPT 52352; principal; 2022-09-22 12:00)
DX: N21.0 Calculus in bladder (principal); N40.0 Benign prostatic hyperplasia without lower urinary tract symptoms; I10 Essential (primary) hypertension
CPT/HCPCS: 52318; 52601; 36415; 80048; 82365; 85014; 85018; 88300; 88305; 93005; A9270; C1758; C1769; J0690; J1100; J2250; J2371; J2405; J2704; J3010; J7120; J7121

== ENCOUNTER 2023-10-24 19:39 | Emergency (ER) | payer MEDICARE, SELFPAY ==
[2023-10-24 19:43] VITALS: BP 170/93; PULSE 71; RESP 14; TEMP 36.6; O2SAT 98
--- NOTE | 2023-10-24 20:00 | ED.WOUNDLAC ---
HPI - Wound/Laceration General Chief Complaint: Wound/Laceration Stated Complaint: head laceration Time Seen by Provider: 10/24/23 20:00 History of Present Illness HPI narrative: 67-year-old male presenting with scalp laceration. Patient was walking when a tree branch fell striking him on his head. He did not lose consciousness. He remembers the entire event. States that he sustained a cut to the right side of the scalp. Denies other injuries. Complains of a headache currently. No numbness or weakness. No nausea vomiting. No further complaints. Related Data Home Medications Medication Instructions Recorded Confirmed tamsulosin 0.4 mg capsule 0.4 mg PO DAILY 12/16/20 09/13/22 amlodipine 5 mg tablet 5 mg PO HS 09/08/22 09/13/22 losartan 25 mg tablet 25 mg PO HS 09/08/22 09/13/22 Allergies Allergy/AdvReac Type Severity Reaction Status Date / Time No Known Allergies Allergy Verified 10/24/23 19:40 Review of Systems Review of Systems: All systems reviewed & are unremarkable except as noted in HPI and below PMFSH Past Medical History Medical History Bladder spasms Enlarged prostate History of deviated nasal septum Hypertension Surgical History Surgical History History of extraction of renal calculus Social History Social History Smoking status: Never smoker Alcohol intake: never Substance use: never Lack of Transportation: No Lack of Food: Never True Current Housing: I Have Housing Concerned About Future Housing: No Difficulty Paying Gas/Electric Bills: No Difficulty Paying for Meds: No Currently Unemployed: No Education: High School Diploma/GED Difficulty w/ Childcare or Family Care: No Living arrangements: with family Spiritual care concerns: No Exam Narrative: GENERAL: Well-appearing, in no acute distress, pleasant cooperative HEAD: Normocephalic, 2 cm stellate laceration right frontal scalp EYES: PERRLA and EOMI. ENT: Grossly unremarkable NECK: Supple. No midline tenderness CHEST: No respiratory distress. HEART: Regular rate EXTREMITIES: Normal range of motion. SKIN: Warm, dry, as above NEURO: No focal deficits. Alert and oriented x3. PSYCH: Normal mood and affect. Course Vital Signs Vital signs: Vital Signs Temperature 97.8 F 10/24/23 19:43 Pulse Rate 71 10/24/23 19:43 Respiratory Rate 14 10/24/23 19:43 Blood Pressure 170/93 H 10/24/23 19:43 Pulse Oximetry 98 10/24/23 19:43 Oxygen Delivery Room Air 10/24/23 19:43 Temperature 97.8 F 10/24/23 19:43 Pulse Rate 71 10/24/23 19:43 Respiratory Rate 14 10/24/23 19:43 Blood Pressure 170/93 H 10/24/23 19:43 Pulse Oximetry 98 10/24/23 19:43 Oxygen Delivery Room Air 10/24/23 19:43 Procedures Laceration Laceration 1: Date: 10/24/23 Time: 20:38 Site: scalp Side (If applicable): right Size (cm): 2 Description: stellate Pre-repair: wound explored and irrigated ====== Skin Level ====== Skin layer closed with: bradley Number of sutures: 5 ====== Subcutaneous Layer ====== ====== Muscle Layer ====== ====== Tendon Layer ====== MDM - Wound/Laceration MDM Narrative Medical decision making narrative: 67-year-old male presenting with a scalp laceration. Vitals stable. Exam remarkable for the above. Tdap was updated. Laceration was repaired with bradley, please see procedure note below for further detail. Tolerated without complication. Safe for outpatient management. Advised PCP follow-up. Appropriate return precautions given. He is agreeable this plan. Discharged stable condition. Differential Diagnosis Differential diagnosis: Likely laceration Medical Records Attestation: I reviewed the patient's
[2023-10-24] MEDS: IBUPROFEN 400 MG TABLET PO (20:19)
[2023-10-24] MEDS: TETANUS,DIPHTHERIA,AC PERTUSSIS ADULT (0.5 ML) BOOSTRIX IM (20:19)
[2023-10-24] MEDS: ACETAMINOPHEN 500 MG TABLET 1000 MG PO (20:19)
== END 2023-10-24 20:47 | disposition home or self-care (01) ==
PROVIDERS: Emergency Provider Emergency Medicine; PCP Registered Nurse
DX: S01.01XA Laceration without foreign body of scalp, initial encounter (principal); Z23 Encounter for immunization; I10 Essential (primary) hypertension; N40.0 Benign prostatic hyperplasia without lower urinary tract symptoms; W20.8XXA Other cause of strike by thrown, projected or falling object, initial encounter
CPT/HCPCS: 12001; 90471; 90715; 99282; A9270

== ENCOUNTER 2024-08-15 12:16 | Outpatient (CLI) | payer MEDICARE, SELFPAY ==
--- OUTSIDE RECORDS SUMMARY | 2024-08-15 12:19 | XMS_ITS | Clinical Summary ---
Author Organization 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 Gender Identity Not on file Sexual Orientation Not on file Plan of Treatment Health Maintenance Due Date Last Done Comments DTAP/TDAP/TD VACCINES (1 - Tdap) 1976 COLORECTAL SCREENING 2002 Colorectal Cancer Screening 2002 FIT-DNA Q 3 years 2002 FIT/FOBT Q 1 year 2002 Flex Sig/CT Colonography Q 5 years 2002 PNEUMOCOCCAL VACCINE 50+ YEARS (1 of 1 - PCV) 11/15/19 08 ZOSTER VACCINE (1 of 2) 11/15/2007 INFLUENZA VACCINE (#1) 2023 RSV VACCINE (60+ or ) (1 - 1-dose 75+ series) 2032 Care Teams Supervising Law Enforcement Analyst Relationship Specialty Start Date End Date Jose L Cook PCP - General 11/02/00
--- OUTSIDE RECORDS SUMMARY | 2024-08-15 12:19 | XMS_ITS | Encounter Summary ---
Author Organization [email or web address] Address 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
--- NOTE | 2024-08-15 12:36 | ECG_ITS ---
Test Date: 2024-08-15 12:48:34 Measurements Intervals [place] Rate: 60 P: 53 IN: 169 QRS: 11 QRSD: 92 T: 32 QT: 403 QTc: 404 Interpretive Statements SINUS RHYTHM No previous ECG available for comparison Electronically Signed On 08-15-2024 15:10:19 CDT by Robin Velasco M.D.
[2024-08-15 12:38] LABS: Add Urine Microscopic? YES; Appearance Urine Clear (Clear); Bacteria Urine None Seen /hpf; Bilirubin Urine Negative (Negative); Blood Urine Negative (Negative); Color Urine Yellow (Yellow); Glucose Urine UA 3+ mg/dL (Negative); Ketones Urine 2+ mg/dL (Negative); Leukocyte Esterase Ur Negative LEU/UL (Negative); Nitrate Urine Negative (Negative); Non Pathogenic Casts 0-2; Protein Urine Trace mg/dL (Negative); RBC Urine 0-2 /hpf (0-2); Specific Grav Ur > 1.045 (1.001-1.035); Squamous Epithelial Cell Urine None Seen /hpf (Few); pH Urine 5.5 (5.0-9.0)
[2024-08-15 12:45] LABS: Anion Gap 10 mmol/L (4-12); Blood Urea Nitrogen 28 mg/dL (9-20); Calcium 9.2 mg/dL (8.4-10.2); Carbon Dioxide 25 mmol/L (22-30); Chloride 103 mmol/L (98-107); Estimated Glomerular Filt Rate > 60; Glucose 111 mg/dL (65-110); Potassium 4.1 mmol/L (3.4-5.0); Sodium 138 mmol/L (137-145)
== END 2024-08-15 12:17 | disposition home or self-care (01) ==
PROVIDERS: PCP Registered Nurse; Visit Provider Nurse Practitioner Family
DX: L57.0 Actinic keratosis (principal); R53.83 Other fatigue; R31.9 Hematuria, unspecified; N40.0 Benign prostatic hyperplasia without lower urinary tract symptoms
CPT/HCPCS: 36415; 80048; 81001; 87086; 93005

== ENCOUNTER 2024-12-10 09:31 | Outpatient (CLI) | payer MEDICARE, SELFPAY ==
--- OUTSIDE RECORDS SUMMARY | 2024-12-10 10:17 | XMS_ITS | Encounter Summary ---
Author Organization [employer] Address 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
--- OUTSIDE RECORDS SUMMARY | 2024-12-10 10:17 | XMS_ITS | Clinical Summary ---
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
[2024-12-10 10:58] LABS: Hematocrit 46.7 % (42.0-52.0); Hemoglobin 15.4 g/dL (14.0-18.0); Immature Granulocyte Percent A 0.3 % (0-0.5); Lymphocytes Absolute Auto 1.27 K/mm3 (0.9-3.2); Mean Corpuscular HGB Conc 33.0 g/dl (32-36); Mean Corpuscular Hemoglobin 28.6 pg (26-34); Mean Corpuscular Volume 86.6 fl (80-100); Nucleated Red Blood Cells Absolute Auto 0.000 K/mm3 (0.0-0.012); Nucleated Red Blood Cells Perc 0.0 % (0.0-0.2); Platelet Count Result 234 k/mm3 (150-375); Red Blood Count 5.39 M/mm3 (4.6-6.20); White Blood Count 3.9 K/mm3 (4.5-10.0)
[2024-12-10 11:07] LABS: Add Urine Microscopic? YES; Appearance Urine Clear (Clear); Glucose Urine UA 3+ mg/dL (Negative); Leukocyte Esterase Ur Trace LEU/UL (Negative); Nitrate Urine Negative (Negative); Non Pathogenic Casts 0-2; Specific Grav Ur 1.027 (1.001-1.035)
[2024-12-10 11:12] LABS: INR 1.0; Prothrombin Time 13.1 Seconds (11.1-14.7)
[2024-12-10 11:13] LABS: Partial Thromboplastin Time 28.2 Seconds (22.3-36.8)
[2024-12-10 11:16] LABS: Hemoglobin A1C 6.1 % (<5.7)
[2024-12-10 11:21] LABS: Albumin Level 4.4 g/dL (3.5-5.1); Anion Gap 9 mmol/L (4-12); Blood Urea Nitrogen 20 mg/dL (9-20); Calcium 9.0 mg/dL (8.4-10.2); Carbon Dioxide 26 mmol/L (22-30); Chloride 102 mmol/L (98-107); Estimated Glomerular Filt Rate > 60; Glucose 102 mg/dL (65-110); Potassium 4.1 mmol/L (3.4-5.0); Sodium 137 mmol/L (137-145)
[2024-12-10 12:12] LABS: MRSA (PCR) NOT DETECTED (NOT DETECTE)
== END 2024-12-10 09:32 | disposition home or self-care (01) ==
LOC: ANHSURGERY 09:35
PROVIDERS: PCP Registered Nurse; Visit Provider Orthopaedic Surgery
DX: M17.11 Unilateral primary osteoarthritis, right knee (principal); Z01.818 Encounter for other preprocedural examination
CPT/HCPCS: 80048; 80307; 81001; 82040; 83036; 85025; 85610; 85730; 87086; 87147; 87186; 87641

== ENCOUNTER 2024-12-24 00:12 | Day surgery (SDC) | payer MEDICARE, SELFPAY ==
[2024-12-10 09:49] VITALS: BP 135/79; PULSE 57; RESP 16; TEMP 36.6; O2SAT 97; BMI 28.1
--- NOTE | 2024-12-10 10:08 | PC.NURSE ---
[facility] has started construction of its new state of the art ER which will open Spring 2026. With this, we anticipate parking may be a challenge for some our surgical patients and families. Parking spaces are limited but are available for all Surgical, obstetrics, and ER patients sharing this lot. If you arrive and find you are having a hard time finding a parking space, please note that we understand the challenges, please drive around the hospital and park near Hospital Entrance 1. When you enter this entrance, you can ask a volunteer to direct or take you back to the surgical waiting area to check in. We appreciate everyone?s understanding of these expected challenges while we build for your future. Report to the Outpatient Waiting Room, entrance under the green pavilion located off [address], at time __06:00am on date __12/24/24 . Planned Procedure Time: _07:30am .? Time changes happen often and if your time is changed the preop area will call you the afternoon before. - You and your visitor will be asked to self-screen and do not enter if you have any COVID symptoms. Please call surgeon if you need to reschedule. - A mask is optional within the hospital at this time. Patients may have clear liquids (water, carbonated beverages, clear teas, apple juice) until 3 hours prior to surgery with a maximum of 20 ounces. - No food from midnight until time of surgery and no smoking, or chewing tobacco (or any form of nicotine). No chewing gum, candy or mints. (04:30am) Take only the following medications with a SIP of water on the morning of surgery: __NONE DO NOT STOP ANY OF YOUR OTHER PRESCRIPTION MEDICATIONS PRIOR TO SURGERY EXCEPT THE FOLLOWING Hold all vitamins and supplements for 3 days per anesthesiologist. Date of last dose is 12/20/24 Medications to discontinue per physician NONE Date to take last dose NONE Please no make-up, nail pitcairn islander, hairspray, perfume, deodorant, or body powder the day of surgery.? No jewelry (including any body piercings) or valuables the day of surgery, leave them at home.? Please take a shower or bath the night before, or the morning of, surgery with an antibacterial soap. HIBICLEANSE SCRUB as Directed. Wear comfortable, loose fitting clothing.? Bring overnight, Tennis shoes, Walker, Phone/Chgr . - Jewelry must be removed prior to entering the operating room.? Rings and piercings that are not removed may be cut off. - The hospital will not accept responsibility for valuables.? - Please leave all valuables, including medications, at home the day of surgery. If you are going home after surgery, a licensed driver's license reviewing officer must drive you home.? - NO public transportation without another adult if you receive anesthesia. - We recommend that an adult stay with you for 24 hours following discharge. - We also recommend that you do not drive, make important decision, drink alcoholic beverages, or take any drugs that were not prescribed by your health care provider for at least 24 hours after your discharge time. Follow any additional instructions given to you from your surgeon. Telephone instructions given to __Patient and and asked if any additional questions and then verbalized understanding. Patient advised to call surgeon office or pre surgery nurse liaison [phone] if any additional questions.
[2024-12-24] VITALS (14 sets, daily range): BP systolic 113–185; BP diastolic 61–85; PULSE 56–84; RESP 10–18; TEMP 35.9–36.8; O2SAT 92–97; BMI 27.3
--- NOTE | ~2024-12-24 | XR_ITS ---
EXAMINATION: [id number]_[id number]_CR, 12/24/2024 10:30 CDT HISTORY: POST OP TKA COMPARISON: No comparisons available. Findings: No acute fracture or malalignment. Prosthesis intact Soft tissues unremarkable. Impression: No acute fracture or malalignment. Reviewed, dictated and finalized at location P. Impression: No acute fracture or malalignment.
[2024-12-24] MEDS: LACTATED RINGERS 1,000 ML 30 ML IV CONT ×2 (06:20→10:14)
[2024-12-24] MEDS: ACETAMINOPHEN 500 MG TABLET 1000 MG PO (06:25)
[2024-12-24] MEDS: TRANEXAMIC ACID 1,000MG/ISO100 1,000 MG/100 ML BAG 200 MG IVPB (07:03)
--- NOTE | 2024-12-24 07:17 | WPDANESEPPF ---
Anes - Initial Pre Proc Eval Procedure: Operation Date: 12/24/24 07:30 Proposed Procedures p Right Total Knee Arthroplasty - Timothy Lakhani MD Date/Time: 12/24/24 07:17 Surgeon: Timothy Lakhani MD Pre Op Diagnosis: Rt Knee O A. Patient Data Age: 69 Gender: M Height: 1.85 m Weight: 93.9 kg Last Vital Signs Temp 36.3 C L 12/24/24 06:59 Pulse 56 L 12/24/24 06:59 Resp 14 12/24/24 06:59 BP 115/69 12/24/24 06:59 Pulse Ox 97 12/24/24 06:59 O2 Del Method Room Air 12/10/24 09:49 Allergies Allergy/AdvReac Type Severity Reaction Status Date / Time No Known Allergies Allergy Verified 12/24/24 06:57 Home Medications ?Medication ?Instructions ?Recorded ?Confirmed ?Type amlodipine 5 mg tablet 5 mg PO HS 09/08/22 12/10/24 History dapagliflozin propanediol 10 mg 10 mg PO DAILY 08/12/24 12/10/24 History tablet (Farxiga) olmesartan 40 mg tablet 40 mg PO DAILY 08/12/24 12/10/24 History celecoxib 200 mg capsule (Celebrex) 200 mg PO BID PRN pain #60 caps 08/15/24 12/10/24 Rx chlorhexidine gluconate 4 % 1 applic topical ONCE #237 mL 11/28/24 12/10/24 Rx topical liquid (Hibiclens) finasteride 5 mg tablet 5 mg PO .PM 12/10/24 12/10/24 History sulfamethoxazole 800 1 tablet PO Q12H UTI 10 days #20 12/15/24 Rx mg-trimethoprim 160 mg tablet tabs (Bactrim DS) Laboratory Tests 12/24/24 06:16 Blood Type O Positive Antibody Screen Negative Patient hx anesthesia problems: none Family hx anesthesia problems: none Results Review: All pre-operative results and documents have been reviewed as part of the pre-operative evaluation. 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 Bladder spasms Enlarged prostate Hypertension History of deviated nasal septum Surgical History Surgical History History of extraction of renal calculus Social History Social History Smoking status: Never smoker Second hand tobacco smoke exposure: No Alcohol intake: never Alcohol use details: few per month Substance use: never Lack of Transportation: No Lack of Food: Never True Current Housing: I Have Housing Concerned About Future Housing: No Difficulty Paying Gas/Electric Bills: No Difficulty Paying for Meds: No Currently Unemployed: No Education: High School Diploma/GED Difficulty w/ Childcare or Family Care: No Living arrangements: with family Additional living arrangements comments: Spiritual care concerns: No Anes - Eval Final PreProcedure Day of Procedure 12/24/24 07:17 Patient weight: overweight Heart: regular rate and rhythm Lungs: clear to auscultation Airway: Mallampati scale class II Neurological: alert and oriented Last oral intake: >/= 8 hours ASA classification: II Emergent: no Anesthetic plan: proceed Anesthesia type and monitoring: general LMA and standard monitoring Results Review: All pre-operative results and documents have been reviewed as part of the pre-operative evaluation. Informed Consent: The patient's anesthetic plan and its attendant risks and benefits were discussed with the patient/family/POA. Questions were solicited and answers provided to the satisfaction of the patient/family/POA.
--- NOTE | 2024-12-24 07:22 | WPDHPUPDATE1 ---
History and Physical Update Update Date/Time: 12/24/24 07:22 History and Physical has been reviewed, including an updated exam of the patient. There are NO changes in the patient's condition. Risks, benefits, and alternatives have been discussed and questions answered. Patient agrees to proceed with procedure.
[2024-12-24] MEDS: ceFAZolin 2 GM in SODIUM CHLORIDE 0.9% IV 50 ML 100 ML IVPB ×3 (07:30→23:19)
[2024-12-24] MEDS: SODIUM CHLORIDE 0.9% IV 37.7 ML, MORPHINE SULFATE INJ (*CRX) 2 MG, ROPivacaine HCL 1% 2... INFILTRATE (08:16)
[2024-12-24] MEDS: TRANEXAMIC ACID 1,000 MG/10 ML AMPUL 1000 MG IV PUSH (09:21)
--- NOTE | 2024-12-24 10:05 | P.OP_ITS ---
Procedure Note - Detailed Date of Procedure 12/24/24 Pre-op Diagnosis Rt Knee O A. Post-op Diagnosis Same Procedure Performed R TKA Surgeon Timothy Lakhani MD Anesthesia General Description of Procedure THE RIGHT KNEE WAS PREPPED AND DRAPED IN THE STERILE FASHION. THERE WAS A 10 DEGREE FLEXION CONTRACTURE. A MIDLINE SKIN INCISION WAS MADE. A MEDIAL PARAPATELLAR ARTHROTOMY WAS MADE. THE PATELLA WAS EVERTED. THERE WAS TRICOMPARTMENT DJD. THERE WAS MINIMAL PATELLA DJD. AN INTRAMEDULLARY ASHLEE WAS PLACED IN THE FEMUR. A DISTAL FEMORAL CUT WAS MADE IN 5 DEGREES OF VALGUS REMOVING APPROXIMATELY 9 MM OF BONE FROM THE DISTAL FEMUR. THE FEMUR WAS SIZED TO 70. A 70 FEMORAL CUTTING BLOCK WAS PLACED IN 3 DEGREES OF EXTERNAL ROTATION AND IN ALIGNMENT WITH OSBALDO'S LINE AND THE TRANSEPICONDYLAR AXIS. ANTERIOR POSTERIOR AND CHAMFER CUTS WERE MADE. THE CUTS WERE EXCELLENT. NEXT AN INTRAMEDULLARY CUTTING GUIDE WAS PLACED IN THE TIBIA. A TRANS TIBIAL CUT WAS MADE ALONG THE LONG AXIS OF THE TIBIA. APPROXIMATELY 10 MM OF BONE WAS REMOVED FROM THE HIGH SIDE OF THE TIBIA. THE TIBIA WAS THEN PLANED TO A SMOOTH SURFACE. POSTERIOR FEMORAL OSTEOPHYTES WERE REMOVED FROM THE FEMORAL CONDYLES. AN 83 TIBIAL TRIAL WAS PLACED IN ALIGNMENT WITH THE 1/3 MEDIAL ASPECT OF THE TIBIAL TUBERCLE. THEN A 70 FEMORAL TRIAL COMPONENT WAS PLACED. BOTH HAD EXCELLENT FITS. EVENTUALLY A 10 MM CR POLYETHYLENE TRIAL COMPONENT WAS PLACED. THE KNEE WAS TAKEN THROUGH A RANGE OF MOTION. THE KNEE CAME OUT TO FULL EXTENSION. THERE WAS NO ABNORMAL TILT TO THE PATELLA. THERE WAS GOOD A/P AND VARUS/VALGUS STABILITY. THERE WAS NO EXCESSIVE ROLL BACK WITH FLEXION. THE TRIAL COMPONENTS WERE REMOVED. THEN A 70 FEMORAL COMPONENT AND 83 TIBIAL COMPONENT WITH A 10 CR POLYETHYLENE COMPONENT WERE CEMENTED INTO PLACE. ONCE THE CEMENT WAS HARD THE KNEE WAS TAKEN THROUGH A ROM AGAIN AND FOUND TO BE STABLE WITH NO PATELLA TILT NO EXCESSIVE ROLL BACK WITH FLEXION AND GOOD STABILITY WITH COMPLETE AND FULL EXTENSION. THE KNEE WAS IRRIGATED WITH STERILE BETADINE AND WATER FOR ABOUT 3 MINUTES. THE BLEEDERS WERE CAUTERIZED. THE ARTHROTOMY WAS REPAIRED WITH NUMBER 1 VICRYL AND 2 QUIL. THE SUB CUTANEOUS LAYER WITH 2-0 VICRYL AND THE SKIN WITH 3-0 QUIL AND DERMABOND. THE WOUND WAS WASHED AND A STERILE DRESSING WAS APPLIED . PATIENT WAS EXTUBATED. Estimated Blood Loss -150.0 Pathology None sent Complications No immediate complications Condition Stable Disposition PACU
[2024-12-24] MEDS: fentaNYL CITRATE INJ (*CRX) 100 MCG/2 ML VIAL 25 MCG IV PUSH ×6 (10:28→10:48)
--- NOTE | 2024-12-24 11:21 | SUR.PHASEI ---
Patient meets PACU discharge criteria, unit bed unavailable at this time. Patient placed in extended recovery status.
[2024-12-24] MEDS: SENNA/DOCUSATE SODIUM TABLET 2 TAB PO ×2 (12:28→17:24)
[2024-12-24] MEDS: ASPIRIN 325 MG ENTERIC TABLET PO ×2 (12:28→20:48)
[2024-12-24] MEDS: oxyCODONE/ACETAMINOPHEN (*CRX) 10-325 MG TABLET 1 TAB PO (12:29)
[2024-12-24] MEDS: FAMOTIDINE 20 MG TABLET PO ×2 (12:29→20:49)
[2024-12-24] MEDS: KETOROLAC 15 MG/ML VIAL (*BKC) IV PUSH ×3 (12:30→23:19)
[2024-12-24] MEDS: SODIUM CHLORIDE 0.9% IV 1,000 ML 125 ML IV CONT (12:30)
--- NOTE | 2024-12-24 13:03 | WPDANESPNB ---
Anes - Peripheral Nerve Block Date/Time: 12/24/24 13:03 I have discussed with the patient/family/POA the placement of a peripheral nerve block for post-operative pain management, including associated risks, benefits, complications, and side effects. Alternative methods of post-operative analgesia were detailed. Questions were solicited and answers provided to the satisfaction of the patient/family/POA. Time-Out: A pre-procedural Time-Out was completed immediately before starting the procedure and confirmed: Patient Identification, Site, Procedure, Patient Position and the Availability of Requisite Equipment. Clinical Indications: Acute post-operative pain management requested by the operative surgeon. Nerve Block Insertion Note Anes-nerve block: adductor canal right Patient position: supine Skin prep: chlorhexidine Needle: 22 gauge, stimulating, insulated echogenic needle. Needle length: 80 mm Technique: ultrasound Technique comment: done in pacu Injectate: bupivacaine 0.5% with epi 5 mcg/ml (30ml no epi) and dexamethasone (mg) (4) Observations: tolerated well Complications: none Procedure start time:: 1055 Procedure end time:: 1101
[2024-12-24] MEDS: FINASTERIDE 5 MG TABLET PO (17:25)
[2024-12-24] MEDS: oxyCODONE/ACETAMINOPHEN (*CRX) 5-325 MG TABLET 1 TABLET PO (20:46)
[2024-12-25 05:30] VITALS: BP 113/61; PULSE 67; RESP 16; TEMP 35.9; O2SAT 96
[2024-12-25 06:06] LABS: Hematocrit 39.4 % (42.0-52.0); Hemoglobin 13.0 g/dL (14.0-18.0); Immature Granulocyte Percent A 0.5 % (0-0.5); Lymphocytes Absolute Auto 0.85 K/mm3 (0.9-3.2); Mean Corpuscular HGB Conc 33.0 g/dl (32-36); Mean Corpuscular Hemoglobin 29.1 pg (26-34); Mean Corpuscular Volume 88.1 fl (80-100); Nucleated Red Blood Cells Absolute Auto 0.000 K/mm3 (0.0-0.012); Nucleated Red Blood Cells Perc 0.0 % (0.0-0.2); Platelet Count Result 248 k/mm3 (150-375); Red Blood Count 4.47 M/mm3 (4.6-6.20); White Blood Count 15.1 K/mm3 (4.5-10.0)
[2024-12-25] MEDS: KETOROLAC 15 MG/ML VIAL (*BKC) IV PUSH (06:14)
[2024-12-25] MEDS: ceFAZolin 2 GM in SODIUM CHLORIDE 0.9% IV 50 ML 100 ML IVPB (06:15)
[2024-12-25 06:24] LABS: Anion Gap 11 mmol/L (4-12); Blood Urea Nitrogen 23 mg/dL (9-20); Calcium 8.6 mg/dL (8.4-10.2); Carbon Dioxide 22 mmol/L (22-30); Chloride 101 mmol/L (98-107); Estimated CRCL calculation 94 ml/min; Estimated Glomerular Filt Rate > 60; Glucose 208 mg/dL (65-110); Potassium 4.3 mmol/L (3.4-5.0); Sodium 134 mmol/L (137-145)
[2024-12-25 08:00] VITALS: PULSE 67; RESP 16; O2SAT 96
--- NOTE | 2024-12-25 09:28 | PM.PNORT ---
Progress Note: A&P Assessment and Plan (1) S/P total knee arthroplasty: Qualifiers: Laterality: right Qualified Code(s): Z96.651 - Presence of right artificial knee joint Code(s): Z96.659 - Presence of unspecified artificial knee joint Status: Acute Assessment and Plan: POD #1 : Right TKA Continue PT/OT. WBAT. Walker. HIGH FALL RISK. Continue pain control. Ice Knee. Protect skin. DVT prophylaxis with Asprin. SCDs. Incentive Spirometry Use reviewed. Monitor Dressing. Change prior to discharge. Bowel Regimen. Dispo: Home with Home Health pending progress with PT/OT Plan Reviewed history, exam, radiographs and current labs with attending MD and covering surgeon, Dr. Lakhani, who agrees with current plan as indicated above. No further recommendations from Dr. Lakhani at this time. Subjective Subjective Date/Time Seen: 12/25/24 09:28 Post Op day: 1 Interval history: POD #1: Right TKA Patient doing very well. Working well with PT/OT. Pain well controlled. No new concerns today. Hopeful for d/c today. Review of Systems Review of Systems: All systems reviewed & are unremarkable except as noted in HPI and below Constitutional: Constitutional: Denies fever(s) and Denies headache(s) ENT: Denies headache(s) Cardiovascular: Cardiovascular: Denies chest pain, Denies diaphoresis, Denies palpitations and Denies dyspnea Respiratory: Respiratory: Denies dyspnea Gastrointestinal: Gastrointestinal: Denies abdominal pain, Denies constipation, Denies nausea and Denies vomiting Genitourinary: Genitourinary: Denies dysuria and Reports nocturia Musculoskeletal: Musculoskeletal: Reports arthralgias (Right Knee ) and Reports joint swelling (Right Knee ) Neurologic: Denies headache(s) Endocrine: Endocrine: Denies palpitations Exam Const: General: comfortable and no acute distress Resp: Effort & Inspection: normal respiratory effort Cardio: Rate: regular rate Rhythm: regular rhythm GI: GI Palp: Yes Soft to palpation, No Tenderness to palpation present (GI) and No Guarding due to palpation present (GI) Skin: General skin exam: wounds noted Wounds: wounds noted Other: Incision c/d/i. No surrounding redness/warmth. No hematoma. Mild ecchymosis. No wound dehiscence Neuro: Cognition (Neuro): normal cognition Other: NV intact aside from block. Moves toes. Sensation intact to light touch. +ankle dorsiflexion/plantarflexion. Extrem: Right lower extremity: normal to inspection, knee Details: tenderness (diffuse, mild ) Location: of the patella, swelling (diffuse, consistent with surgical intervention ), abnormal ROM Details: pain with active ROM during, pain with passive ROM during and with range as follows (limited due to recent surgical intervention ); able to extend lower leg actively and ecchymosis (mild ), lower leg (Negative Sylvia's Sign ) Details: normal to inspection; no erythema and no tenderness, ankle (+ankle dorsiflexion/plantarflexion ) Details: normal to inspection, no edema and normal ROM; no tenderness, no swelling and no ecchymosis and foot Details: normal capillary refill, normal to inspection, vascular exam Details: dorsalis pedis pulse present and motor-sensory exam Details: light-touch normal; no tenderness Left lower extremity: normal to inspection Psych: Mental Status: mental status grossly normal Objective Data Vital Signs Vital Signs: Vital Signs - 24 hr 12/24/24 10:14 12/24/24 10:30 12/24/24 10:45 Temperature 36.8 C Pulse Rate 80 80 68 Respiratory Rate 10 L 12 12 Blood Pressure 175/83 H 185/85 H 147/69 H Pulse Oximetry 95 97 94 Oxygen Delivery Simple Face Mask Simple Face Mask Nasal Cannula Oxygen Flow Rate 10 10 4 12/24/24 11:00 12/24/24 11:15 12/24/24 11:30 Temperature Pulse Rate 84 68 73 Respiratory Rate 16 12 16 Blood Pressure 139/72 150/75 H 139/84 Pulse Oximetry 96 94 97 Oxygen Delivery Nasal Cannula Nasal Cannula Nasal Cannula Oxygen Flow Rate 4 4 4 12/24/24 11:45 12/24/24 11:57 12/24/24 12:12 Temperature 36.7 C 36.7 C 36.1 C L Pulse Rate 68 79 77 Respiratory Rate 12 16 16 Blood Pressure 144/79 H 165/74 H 158/75 H Pulse Oximetry 95 92 94 Oxygen Delivery Nasal Cannula Oxygen Flow Rate 3 12/24/24 12:42 12/24/24 13:35 12/24/24 13:42 Temperature 36.1 C L 35.9 C L Pulse Rate 73 72 Respiratory Rate 16 18 Blood Pressure 149/79 H 149/79 H Pulse Oximetry 94 94 Oxygen Delivery Room Air Oxygen Flow Rate 12/24/24 14:28 12/24/24 14:54 12/24/24 17:42 Temperature 36.1 C L Pulse Rate 71 Respiratory Rate 18 Blood Pressure 143/85 H Pulse Oximetry 95 Oxygen Delivery Room Air Room Air Oxygen Flow Rate 12/24/24 20:45 12/24/24 21:20 12/25/24 05:30 Temperature 35.9 C L 35.9 C L Pulse Rate 67 67 Respiratory Rate 16 16 Blood Pressure 113/61 113/61 Pulse Oximetry 96 96 Oxygen Delivery Room Air Oxygen Flow Rate Intake/Output Intake/Output: Intake & Output 12/22/24 12/23/24 12/24/24 12/25/24 23:59 23:59 23:59 23:59 Intake Total 590 240 Balance 590 240 Meds/Results Medications: Active Medications Generic Name Dose Route Start Last Admin Trade Name Freq PRN Reason Stop Dose Admin Acetaminophen 500 mg 12/24/24 11:57 Acetaminophen 500 Mg Tablet PO Q6H PRN Pain Rated 1-3 Amlodipine Besylate 5 mg 12/24/24 21:00 12/24/24 20:49 Amlodipine Besylate 5 Mg Tablet PO 5 mg HS NAEEM Administration Aspirin 325 mg 12/24/24 12:15 12/24/24 20:48 Aspirin 325 Mg Enteric Tablet PO 325 mg Q12HR NAEEM Administration Diazepam 5 mg 12/24/24 11:57 Diazepam (*Crx) 5 Mg Tablet PO Q8H PRN Spasms Diphenhydramine HCl 25 mg 12/24/24 11:57 Diphenhydramine Hcl Inj 50 Mg/Ml Vial IV PUSH Q6H PRN Itching Famotidine 20 mg 12/24/24 11:57 12/24/24 20:49 Famotidine 20 Mg Tablet PO 20 mg Q12HR NAEEM Administration Finasteride 5 mg 12/24/24 18:00 12/24/24 17:25 Finasteride 5 Mg Tablet PO 5 mg QPM NAEEM Administration Hydromorphone HCl 1 mg 12/24/24 11:57 Hydromorphone Hcl Inj (*Crx) 1 Mg/Ml Syr IV PUSH Q2H PRN Breakthrough Pain Rated 7-10 or NPO Hydromorphone HCl 0.5 mg 12/24/24 11:57 Hydromorphone Hcl Inj (*Crx) 1 Mg/Ml Syr IV PUSH Q2H PRN Breakthrough Pain Rated 4-6 or NPO Ibuprofen 800 mg in 200 mls @ 400 mls/hr 12/24/24 11:57 Caldolor 800 Mg/200 Ml IVPB Q6H PRN Breakthrough Pain Rated 1-3 or NPO Ketorolac Tromethamine 15 mg 12/24/24 12:00 12/25/24 06:14 Ketorolac 15 Mg/Ml Vial (*Bkc) IV PUSH 12/25/24 12:01 15 mg Q6HR NAEEM Administration Naloxone HCl 0.1 mg 12/24/24 11:57 Naloxone Hcl 0.4 Mg/Ml Vial IV PUSH Q2M PRN Opiate Reversal Ondansetron HCl 4 mg 12/24/24 11:57 Ondansetron Inj 4 Mg/2 Ml Vial IV PUSH Q4H PRN Nausea And Vomiting Oxycodone/Acetaminophen 1 tablet 12/24/24 11:57 12/24/24 20:46 Oxycodone/Acetaminophen (*Crx) 5-325 Mg Tablet PO 1 tablet Q4H PRN Administration Pain Rated 4-6 Oxycodone/Acetaminophen 1 tab 12/24/24 11:57 12/24/24 12:29 Oxycodone/Acetaminophen (*Crx) 10-325 Mg Tablet PO 1 tab Q6H PRN Administration Pain Rated 7-10 Polyethylene Glycol 17 gm 12/24/24 11:57 12/24/24 12:29 Polyethylene Glycol 3350 17 Gm Powd.Pack PO 17 gm QAM NAEEM Administration Senna/Docusate Sodium 2 tab 12/24/24 11:57 12/24/24 17:24 Senna/Docusate Sodium Tablet PO 2 tab BID NAEEM Administration Radiology Results: ITS Impressions Knee X-Ray 12/24/24 10:39 Impression: No acute fracture or malalignment. Labs Labs: Laboratory Results - last 24 hr 12/25/24 05:13 WBC 15.1 H RBC 4.47 L Hgb 13.0 L Hct 39.4 L MCV 88.1 MCH 29.1 MCHC 33.0 RDW 13.2 Plt Count 248 MPV 9.5 Immature Gran % (Auto) 0.5 Neut % (Auto) 87.1 H Lymph % (Auto) 5.6 L [place] % (Auto) 6.7 Eos % (Auto) 0.0 Baso % (Auto) 0.1 L Lymph # (Auto) 0.85 L [place] # (Auto) 1.0 H Eos # (Auto) 0.0 Baso # (Auto) 0.0 Abs Immat Gran (auto) 0.08 H Absolute Neuts (auto) 13.2 H Absolute Nucleated RBC 0.000 Nucleated RBC % 0.0 Sodium 134 L Potassium 4.3 Chloride 101 Carbon Dioxide 22 Anion Gap 11 BUN 23 H Creatinine 0.75 Estim Creat Clear Calc 94 Estimated GFR > 60 Glucose 208 H Calcium 8.6 Quality VTE Prophylaxis VTE prophylaxis: pharmacologic ordered
[2024-12-25] MEDS: FAMOTIDINE 20 MG TABLET PO (09:46)
[2024-12-25] MEDS: SENNA/DOCUSATE SODIUM TABLET 2 TAB PO (09:46)
[2024-12-25] MEDS: ASPIRIN 325 MG ENTERIC TABLET PO (09:46)
== END 2024-12-25 13:15 | disposition home health service (06) ==
LOC: ANHSURGERY 05:46 → ANH3MEDSUR 12:03
PROVIDERS: PCP Registered Nurse; Visit Provider Orthopaedic Surgery
PROC: (CPT 27447; principal; 2024-12-24 07:30)
DX: M17.11 Unilateral primary osteoarthritis, right knee (principal); M25.761 Osteophyte, right knee; G89.29 Other chronic pain; I10 Essential (primary) hypertension; G89.18 Other acute postprocedural pain; N32.89 Other specified disorders of bladder; N40.0 Benign prostatic hyperplasia without lower urinary tract symptoms; R53.83 Other fatigue; Z79.84 Long term (current) use of oral hypoglycemic drugs; Z79.1 Long term (current) use of non-steroidal anti-inflammatories (NSAID); Z98.890 Other specified postprocedural states
CPT/HCPCS: 64447; 27447; 36415; 73560; 80048; 85025; 86850; 86900; 86901; 97110; 97116; 97161; 97165; 97530; J0690; A9270; C1713; C1776; J0166; J1100; J1171; J1885; J2250; J2270; J2405; J2704; J2795; J3010; J3290; J3373; J7030; J7120

== ENCOUNTER 2025-01-08 18:14 | Emergency (ER) | payer MEDICARE, SELFPAY ==
[2025-01-08] VITALS (23 sets, daily range): BP systolic 163–196; BP diastolic 92–110; PULSE 61–97; RESP 13–27; TEMP 36.4; O2SAT 91–99
--- NOTE | 2025-01-08 18:44 | ECG_ITS ---
Test Date: 2025-01-08 19:22:45 Measurements Intervals [place] Rate: 61 P: 36 [place]: 172 QRS: 4 QRSD: 88 T: 28 QT: 393 QTc: 398 Interpretive Statements SINUS RHYTHM VOLTAGE CRITERIA FOR LVH MINIMAL Q WAVES- HIGH LATERAL LEADS BASELINE ARTIFACT- V1-V2 BORDERLINE ECG Compared to ECG 08/15/2024 12:48:34 No significant changes Electronically Signed On 01-08-2025 21:04:19 CDT by Dayne Leo D.O.
[2025-01-08 19:07] LABS: Hematocrit 38.3 % (42.0-52.0); Hemoglobin 12.3 g/dL (14.0-18.0); Immature Granulocyte Percent A 0.7 % (0-0.5); Lymphocytes Absolute Auto 1.48 K/mm3 (0.9-3.2); Mean Corpuscular HGB Conc 32.1 g/dl (32-36); Mean Corpuscular Hemoglobin 28.7 pg (26-34); Mean Corpuscular Volume 89.5 fl (80-100); Nucleated Red Blood Cells Absolute Auto 0.000 K/mm3 (0.0-0.012); Nucleated Red Blood Cells Perc 0.0 % (0.0-0.2); Platelet Count Result 390 k/mm3 (150-375); Red Blood Count 4.28 M/mm3 (4.6-6.20); White Blood Count 7.3 K/mm3 (4.5-10.0)
[2025-01-08 19:08] LABS: Add Urine Microscopic? NO; Appearance Urine Clear (Clear); Glucose Urine UA 3+ mg/dL (Negative); Leukocyte Esterase Ur Negative LEU/UL (Negative); Nitrate Urine Negative (Negative); Specific Grav Ur 1.021 (1.001-1.035)
--- OUTSIDE RECORDS SUMMARY | 2025-01-08 19:33 | XMS_ITS | Encounter Summary ---
Author Organization [employer] Address 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
--- OUTSIDE RECORDS SUMMARY | 2025-01-08 19:33 | XMS_ITS | Clinical Summary ---
Author Organization [employer] 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
--- NOTE | 2025-01-08 19:37 | ED_ITS ---
HPI - General Adult General Chief complaint: Recheck/Abnormal Lab/Rx Stated complaint: high BP Time Seen by Provider: 01/08/25 18:25 Source: patient Mode of arrival: ambulatory Limitations: no limitations History of Present Illness HPI narrative: 69-year-old with a history of hypertension, status post knee replacement right on December 24 here with a complains of elevated blood pressure for past 2 days. He states that his home health nurse was there to check on him this morning and was found to have elevated blood pressure. He is presently on olmesartan 40 mg daily and Norvasc 5 mg daily. Denies having any headache or chest pain no blurred vision. Onset (ago): day(s) (1) Relieving factors: none Exacerbating factors: none Associated symptoms: denies other symptoms Related Data Home Medications ?Medication ?Instructions ?Recorded ?Confirmed ?Last Taken ?Type amlodipine 5 mg tablet 5 mg PO HS 09/08/22 12/10/24 Unknown History dapagliflozin propanediol 10 mg 10 mg PO DAILY 5 12/10/24 Unknown History tablet (Farxiga) olmesartan 40 mg tablet 40 mg PO DAILY 08/12/2411/18 Unknown History finasteride 5 mg tablet 5 mg PO .PM 12/10/24 5 Unknown History Allergies Allergy/AdvReac Type Severity Reaction Status Date / Time No Known Allergies Allergy Verified 12/24/24 06:57 Review of Systems 2 Review of Systems: All systems reviewed & are unremarkable except as noted in HPI and below Constitutional: Constitutional: Reports no additional constitutional complaints Eyes: Eyes: Reports no additional eye complaints ENT: Reports system reviewed and no additional complaints, except as documented Cardiovascular: Cardiovascular: Reports no additional cardiovascular complaints Respiratory: Respiratory: Reports no additional respiratory complaints Gastrointestinal: Gastrointestinal: Reports no additional gastrointestinal complaints Musculoskeletal: Musculoskeletal: Reports no additional musculoskeletal complaints Neurologic: Reports system reviewed and no additional complaints, except as documented Psychiatric: Psychiatric: Reports no additional psychiatric complaints [facility] Past Medical History Medical History Other fatigue Effusion of knee joint right 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 Bladder spasms Enlarged prostate Hypertension History of deviated nasal septum Surgical History Surgical History S/P total knee arthroplasty History of extraction of renal calculus Social History Social History Smoking status: Never smoker Second hand tobacco smoke exposure: No Alcohol intake: never Alcohol use details: few per month Substance use: never Lack of Transportation: No Lack of Food: Never True Current Housing: I Have Housing Concerned About Future Housing: No Difficulty Paying Gas/Electric Bills: No Difficulty Paying for Meds: No Currently Unemployed: No Education: High School Diploma/GED Difficulty w/ Childcare or Family Care: No Living arrangements: with family Additional living arrangements comments: Spiritual care concerns: No Exam 2 Narrative: GENERAL: Well-appearing, well-nourished, and in no acute distress. HEAD: Normocephalic, atraumatic. EYES: PERRLA and EOMI. ENT: Nares clear, no rhinorrhea or epistaxis. Mucous membranes moist. NECK: Supple. CHEST: Clear to auscultation. No respiratory distress. HEART: Regular rate and rhythm. No murmur heard. Normal peripheral pulses. ABDOMEN: Soft, nontender, nondistended, normal active bowel sounds. EXTREMITIES: Normal range of motion. No edema. Right knee surgical scar present. No drainage no redness SKIN: Warm, dry, no rash. NEURO: No focal deficits. Alert and oriented x3. PSYCH: Normal mood and affect. Course Course Emergency Course: Informed him about the lab work, EKG findings. Advised to increase the dosage of Norvasc to 10 mg daily, follow with his primary doctor. Vital Signs Vital signs: Vital Signs Temperature 36.4 C 01/08/25 18:18 Pulse Rate 72 01/08/25 18:18 Respiratory Rate 17 01/08/25 18:18 Blood Pressure 195/105 H 01/08/25 18:18 Pulse Oximetry 99 01/08/25 18:18 Oxygen Delivery Room Air 01/08/25 18:18 Temperature 36.4 C 01/08/25 18:18 Pulse Rate 66 01/08/25 19:15 Respiratory Rate 15 01/08/25 19:15 Blood Pressure 163/98 H 01/08/25 19:15 Pulse Oximetry 96 01/08/25 19:15 Oxygen Delivery Room Air 01/08/25 18:18 Medical Decision Making Differential Diagnosis Differential Diagnosis: Hypertensive urgency, emergency Medical Records Medical records reviewed: Yes I reviewed the external patient's medical records. Vital Signs Vital Signs: Vital Signs Temperature 36.4 C 01/08/25 18:18 Pulse Rate 72 01/08/25 18:18 Respiratory Rate 17 01/08/25 18:18 Blood Pressure 195/105 H 01/08/25 18:18 Pulse Oximetry 99 01/08/25 18:18 Oxygen Delivery Room Air 01/08/25 18:18 Temperature 36.4 C 01/08/25 18:18 Pulse Rate 66 01/08/25 19:15 Respiratory Rate 15 01/08/25 19:15 Blood Pressure 163/98 H 01/08/25 19:15 Pulse Oximetry 96 01/08/25 19:15 Oxygen Delivery Room Air 01/08/25 18:18 Lab Data Lab results reviewed: Yes I reviewed the patient's lab results. 01/08/25 18:56 01/08/25 18:56 Labs: Lab Results 01/08/25 01/08/25 Range/Units 18:56 19:01 WBC 7.3 (4.5-10.0) K/mm3 RBC 4.28 L (4.6-6.20) M/mm3 Hgb 12.3 L (14.0-18.0) g/dL Hct 38.3 L (42.0-52.0) % MCV 89.5 (80-100) fl MCH 28.7 (26-34) pg MCHC 32.1 (32-36) g/dl RDW 13.2 (11.5-14.5) % Plt Count 390 H D (150-375) k/mm3 MPV 8.7 (7.4-10.4) fl Immature Gran % (Auto) 0.7 H (0-0.5) % Neut % (Auto) 62.8 (45.5-73.1) % Lymph % (Auto) 20.3 (18.3-44.2) % [place] % (Auto) 7.3 (2.6-8.5) % Eos % (Auto) 8.4 H (0-4.4) % Baso % (Auto) 0.5 (0.2-1.2) % Lymph # (Auto) 1.48 (0.9-3.2) K/mm3 [place] # (Auto) 0.5 (0.1-0.6) K/mm3 Eos # (Auto) 0.6 H (0-0.3) K/mm3 Baso # (Auto) 0.0 (0.0-0.1) K/mm3 Abs Immat Gran (auto) 0.05 H (0.00-0.031) K/mm3 Absolute Neuts (auto) 4.6 (1.3-6.7) K/mm3 Absolute Nucleated RBC 0.000 (0.0-0.012) K/mm3 Nucleated RBC % 0.0 (0.0-0.2) % Sodium 134 L (137-145) mmol/L Potassium 4.6 (3.4-5.0) mmol/L Chloride 102 (98-107) mmol/L Carbon Dioxide 25 (22-30) mmol/L Anion Gap 7 (4-12) mmol/L BUN 24 H (9-20) mg/dL Creatinine 0.63 L (0.7-1.3) mg/dL Estim Creat Clear Calc 110 ml/min Estimated GFR > 60 (59 - ) Glucose 112 H (65-110) mg/dL Calcium 8.7 (8.4-10.2) mg/dL Urine Color Yellow (Yellow) Urine Appearance Clear (Clear) Urine pH 6.0 (5.0-9.0) Ur Specific [place] 1.021 (1.001-1.035) Urine Protein Negative (Negative) mg/dL Urine Glucose (UA) 3+ H (Negative) mg/dL Urine Ketones Negative (Negative) mg/dL Ur Blood (Man) Negative (Negative) Urine Nitrate Negative (Negative) Urine Bilirubin Negative (Negative) Urine Urobilinogen 1.0 (<2.0) mg/dL Leukocyte Esterase Rfl Negative (Negative) VINH/UL ECG Data EKG #1: ECG completion date: 01/08/25 ECG completion time: 19:42 EKG Interpretation: normal rate (61), no ectopy, no ST changes, normal QRS and NL axis Discharge Plan Discharge Clinical Impression: Hypertension, uncontrolled Patient Disposition: Home Condition: Stable Instructions: Antibiotic Form, Hypertension (ED) Additional Instructions: Increase the dosage of for Norvasc to 10 mg daily, follow-up with your primary doctor, continue rest of the home medication. Patient Language: Filipino Prescriptions: No Action amlodipine 5 mg tablet 5 mg PO HS finasteride 5 mg tablet 5 mg PO .PM Patient Comments: PM aspirin 325 mg Tablet,Delayed Release (Dr/Ec) 325 mg PO Q12HR 28 Days Qty: 56 0RF dapagliflozin propanediol [Farxiga] 10 mg tablet 10 mg PO DAILY Patient Comments: AM olmesartan 40 mg tablet 40 mg PO DAILY oxycodone-acetaminophen 5-325 mg tablet 1 tablet PO Q8H PRN (Reason: pain) Qty: 30 0RF celecoxib [Celebrex] 200 mg capsule 200 mg PO BID PRN (Reason: pain) Qty: 30 0RF Follow-up/Referrals: Nba,JEAN-PAUL Land [Primary Care Provider, Unknown] Time of Disposition: 19:44
[2025-01-08 19:48] LABS: Anion Gap 7 mmol/L (4-12); Blood Urea Nitrogen 24 mg/dL (9-20); Calcium 8.7 mg/dL (8.4-10.2); Carbon Dioxide 25 mmol/L (22-30); Chloride 102 mmol/L (98-107); Estimated CRCL calculation 110 ml/min; Estimated Glomerular Filt Rate > 60; Glucose 112 mg/dL (65-110); Potassium 4.6 mmol/L (3.4-5.0); Sodium 134 mmol/L (137-145)
--- NOTE | 2025-01-08 20:06 | PC.NURSE ---
Patient upset about having a roommate near him and about BP cuff running every 15 minutes. MD notified about BP reading. We are going to wait an hour and recheck BP.
--- NOTE | 2025-01-08 20:17 | PC.NURSE ---
Patient yelling at roommate for singing in room. Security called to speak with patient. Patient yelling at aircraft de icer installer and RN about monitor not working and waiting in room. Monitor in room is working, BP was checked 20 minutes ago. RN stated we would wait 30 minutes to recheck BP and it has been 20 minutes. MD wants pt to wait one hour after po BP meds to see if medication has worked.
--- NOTE | 2025-01-08 20:30 | PC.NURSE ---
RN placed patient in private room to recheck BP and de-escalate patient.
[2025-01-08] MEDS: OLMESARTAN MEDOXOMIL 20 MG TABLET 40 MG PO (21:10)
== END 2025-01-08 22:23 | disposition home or self-care (01) ==
PROVIDERS: Emergency Provider Family Medicine; PCP Registered Nurse
DX: I10 Essential (primary) hypertension (principal); N40.0 Benign prostatic hyperplasia without lower urinary tract symptoms; M17.12 Unilateral primary osteoarthritis, left knee; Z96.653 Presence of artificial knee joint, bilateral; Z79.899 Other long term (current) drug therapy; Z79.82 Long term (current) use of aspirin
CPT/HCPCS: 36415; 80048; 81003; 85025; 93005; 99283; A9270